=== PATIENT | male | born 1955 | race Hispanic/Latino ===

== ENCOUNTER 2019-10-08 13:41 | Inpatient (IN) | payer MEDICARE, OTHER ==
[~2019-10-08] VITALS: Ht 160 cm; Wt 61.4 kg
[~2019-10-08 13:41] MED LIST: GLUCOPHAGE1000 MG PO; thyroid med
--- OUTSIDE RECORDS SUMMARY | 2019-10-08 13:44 | XMS REPORT | CCD ---
Author Author Auto Luis, GABRIEL Walsh [facility] Address Unknown Phone Unavailable Care Team Providers Care Gold Charmer Name Role Phone Joey Liu CP Allergies, Adverse Reactions, Alerts Substance Reaction Status NKDA Active Problem List Condition Effective Dates Status DM - Diabetes mellitus Active HTN - Hypertension Active Medications Medication Instructions Start Date End Date Status Zofran ODT 4 mg oral 4 mg ODT, PO, Q4H, PRN Nausea and 2012 Ordered tablet, Vomiting, 20 tab, Substitut ion disintegrating Allowed PRN Nausea and Vomiting [place] 5/325 oral 1 - 2 TABS, PO, Q6H, PRN, 20 tab, 01/10/2013 Ordered tablet as needed for pain, Substit ution Allowed, Maintenance, TAB Dilaudid 1 mg, Route: IV, ONCE, Dosing 01/10/2013 3 Completed Weight 72.727, kg, Priority: STAT, Start date: 01/10/13 17:28:00, Stop date: 01/10/13 17:28:00 Zofran 4 mg, Route: IVP, Drug form: INJ, 01/10/201301/10 Completed ONCE, Dosing Weight 72.727, kg, Priority: STAT, Start date: 01/10/13 15:41:00, Stop date: 01/10/13 15:41:00 morphine Sulfate 4 mg, Route: IVP, ONCE, Dosing 01/10/2013 Completed Weight 72.727, kg, Priority: STAT, Start date: 01/10/13 15:40:00, Stop date: 01/10/13 15:40:00 Zofran 4 mg, Route: IVP, Drug form: INJ, 01/10/201301/10 Completed ONCE, Dosing Weight 72.727, kg, Priority: STAT, Start date: 01/10/13 15:40:00, Stop date: 01/10/13 15:40:00 Sodium Chloride 0.9% 500 mL, Rate: 500 ml/hr, Infuse 01/10/2013 01/10/2013 Completed (Bolus) IV 500 mL over: 1 hr, Route: IV, Dosi ng Weight 72.727 kg, Total Volume: 500, Bolus Dose, Priority: STAT, Start date: 01/10/13 15:40:00, Duration: 1 doses or times, Stop date: 01/10/13 16:39:00 Vital Signs Most recent to oldest [Reference Range]: 1 2 Height 172.72 cm (01/10/2013 13:58:00) Temperature Oral [96.4-99.1 DegF] 99.0 DegF (01/10/2013 18:20:00) 97.8 DegF (01/10/2013 13:58:00) Systolic Blood Pressure [90-140 mmHg] 141 mmHg *HI* (01/10/2013 18:20:00) 164 mmHg *HI* (01/10/2013 13:58:00) Diastolic Blood Pressure [60-90 mmHg] 69 mmHg (01/10/2013 18:20:00) 80 mmHg (01/10/2013 13:58:00) Respiratory Rate [14-20 BRMIN] 18 BRMIN (01/10/2013 18:20:00) 18 BRMIN (01/10/2013 13:58:00) Peripheral Pulse Rate [60-100 bpm] 91 bpm (01/10/2013 18:20:00) 82 bpm (01/10/2013 13:58:00) Weight 72.727 kg (01/10/2013 13:58:00) Results CHEMISTRY Most recent to oldest [Reference Range]: 1 Sodium Lvl [135-145 mEq/L] 139 mEq/L (01/10/2013 16:43:00) Potassium Lvl [3.5-5.1 mEq/L] 3.9 mEq/L (01/10/2013 16:43:00) Chloride Lvl [95-109 mEq/L] 100 mEq/L (01/10/2013 16:43:00) CO2 [24-32 mEq/L] 30 mEq/L (01/10/2013 16:43:00) AGAP [10.0-20.0 mEq/L] 12.9 mEq/L (01/10/2013 16:43:00) Creatinine Lvl [0.5-1.4 mg/dL] 0.7 mg/dL (01/10/2013 16:43:00) eGFR 106 mL/min/1.73m2 1 *NA* (01/10/2013 16:43:00) BUN [7-22 mg/dL] 10 mg/dL (01/10/2013 16:43:00) B/C Ratio [6-25] 14 (01/10/2013 16:43:00) Glucose Lvl [70-99 mg/dL] 200 mg/dL 2 *HI* (01/10/2013 16:43:00) Total Protein [6.4-8.4 g/dL] 7.9 g/dL (01/10/2013 16:43:00) Albumin Lvl [3.5-5.0 g/dL] 3.8 g/dL (01/10/2013 16:43:00) Globulin [2.0-4.0 g/dL] 4.1 g/dL *HI* (01/10/2013 16:43:00) A/G Ratio [0.7-1.6] 0.9 (01/10/2013 16:43:00) Calcium Lvl [8.5-10.5 mg/dL] 9.2 mg/dL (01/10/2013 16:43:00) ALT [0-65 unit/L] 73 unit/L *HI* (01/10/2013 16:43:00) AST [0-37 unit/L] 45 unit/L *HI* (01/10/2013 16:43:00) Alk Phos [39-136 unit/L] 133 unit/L (01/10/2013 16:43:00) Bili Total [0.2-1.3 mg/dL] 0.8 mg/dL (01/10/2013 16:43:00) Lipase Lvl [73-393 unit/L] 107 unit/L (01/10/2013 16:43:00) Troponin-I [0.00-0.40 ng/mL] <0.02 ng/mL (01/10/2013 16:43:00) 1Result Comment: The eGFR is calculated using the CKD-EPI formula. In most young, healthy individuals the eGFR will be >90 mL/min/1.73m2. The eGFR declines with age. An eGFR of 60-89 may be normal in some populations, particularly the elderly, for whom the CKD-EPI formula has not been extensively validated. Use of the eGFR is not recommended in the following populations: Individuals with unstable creatinine concentrations, including patients and those with serious co-morbid conditions. Patients with extremes in muscle mass or diet. The data above are obtained from the National Kidney Disease Education Program ( NKDEP) which additionally recommends that when the eGFR is used in patients with extremes of body mass index for purposes of drug dosing, the eGFR should be mul tiplied by the estimated BMI. 2Interpretive Data: Adult reference range values reflect the clinical guidelines of the [place] [employer]. HEMATOLOGY Most recent to oldest [Reference Range]: 1 WBC [3.7-10.4 K/CMM] 9.4 K/CMM (01/10/2013:43:00) RBC [4.70-6.10 M/CMM] 5.05 M/CMM (01/10/2013 16:43:00) Hgb [14.0-18.0 g/dL] 15.6 g/dL (01/10/2013:43:00) Hct [42.0-54.0 %] 46.7 % (01/10/2013 16:43:00) MCV [80.0-94.0 fL] 92.4 fL (01/10/2013:43:00) MCH [27.0-31.0 pg] 30.9 pg (01/10/2013 16:43:00) MCHC [32.0-36.0 g/dL] 33.5 g/dL (01/10/2013 16:43:00) RDW [11.5-14.5 %] 13.4 % (01/10/2013 16:43:00) Platelet [133-450 K/CMM] 174 K/CMM (01/10/2013 16:43:00) MPV [7.4-10.4 fL] 7.9 fL (01/10/2013 16:43:00) Segs [45.0-75.0 %] 75.5 % *HI* (01/10/2013 16:43:00) Lymphocytes [20.0-40.0 %] 12.2 % *LOW* (01/10/2013 16:43:00) Monocytes [2.0-12.0 %] 10.5 % (01/10/2013 16:43:00) Eosinophils [0.0-4.0 %] 1.3 % (01/10/2013 16:43:00) Basophils [0.0-1.0 %] 0.5 % (01/10/2013 16:43:00) Segs-Bands # [1.5-8.1 K/CMM] 7.1 K/CMM (01/10/2013 16:43:00) Lymphocytes # [1.0-5.5 K/CMM] 1.1 K/CMM (01/10/2013 16:43:00) Monocytes # [0.0-0.8 K/CMM] 1.0 K/CMM *HI* (01/10/2013 16:43:00) Eosinophils # [0.0-0.5 K/CMM] 0.1 K/CMM (01/10/2013 16:43:00) Basophils # [0.0-0.2 K/CMM] 0.1 K/CMM (01/10/2013 16:43:00)
--- OUTSIDE RECORDS SUMMARY | 2019-10-08 13:44 | XMS REPORT | Summary of Care ---
Author Author [facility] Organization [facility] toney Address Unknown Phone Unavailable Encounter HQ Shira_daniel(FIN) [id number] Date(s): 09/25/19 - 09/25/19 [facility] [address] [place] [phone] Discharge Disposition: Home or Self Care Attending Physician: Zachary Wilson MD Referring Physician: Zachary Wilson MD Vital Signs No data available for this section Problem List Condition Effective Dates Status Health Status Informan t DM - Diabetes Active mellitus(Confirmed) HTN - Resolved Hypertension(Confirm ed)1 Hyperthyroidism(Conf Active irmed) 1PT denies high blood pressure Allergies, Adverse Reactions, Alerts No Known Medication Allergies Medications No data available for this section Results No data available for this section Immunizations Given and Recorded Vaccine Date Status Refusal Reason pneumococcal 23-valent vaccine 04/09/13 Given influenza virus vaccine, inactivated 04/09/13 G iven Procedures Procedure Date Related Diagnosis Body Site Status Cholecystectomy Completed Social History Social History Type Response Assessment and Plan No data available for this section
--- OUTSIDE RECORDS SUMMARY | 2019-10-08 13:44 | XMS REPORT | CCD ---
Author Author Auto Generated, GABRIEL Organization [facility] Address Unknown Phone Unavailable Care Team Providers Care Electroformer Name Role Phone Jose Currie CP Allergies, Adverse Reactions, Alerts Substance Reaction Status NKDA Active Problem List Condition Effective Dates Status DM - Diabetes mellitus Active HTN - Hypertension1 Resolved Hyperthyroidism Active 1PT denies high blood pressure Medications Medication Instructions Start Date End Date Status levothyroxine 100 100 microgram, 1 tab, PO, Daily, 04/08/2013 Ordered mcg (0.1 mg) oral Substitution Allowed tablet metFORmin 1000 mg 1,000 mg, 1 tab, PO, BID, 04/08/2013 O rdered oral tablet Substitution Allowed NO Aspirin / NSAIDS NO Aspirin / NSAIDS / Blood 04/10/2013 Discontinued / Blood thinners thinners, 1, Drug form: MIS C, Route: MISC, Continuous, 04/10/13 15:30:00, Duration: 30 day, Stop date: 05/10/13 15:29:00 Saline Flush 0.9% 5 mL, Route: IVP, Drug Form: INJ, 04/08/2013 04/08/2013 Discontinued Dosing Weight 74.545, kg, PRN, PRN Line Flush, Start date: 04/08/13 13:22:00, Duration: 24 hr, Stop date: 04/09/13 13:21:00Same as: BD Posiflush Sterile morphine Sulfate 4 mg, 2 mL, Route: IVP, Drug form: 04/08/2013 04/11/2013 Discontinued INJ, Q3H, Dosing Weight 74.545, kg, PRN Pain Score 7-10, Start date: 04/08/13 20:34:00, Duration: 30 day, Stop date: 05/08/13 20:33:00(Same as:MORPhine Sulfate) ondansetron 4 mg, 2 mL, Route: IVP, Drug form: 04/08/201303/24 Discontinued INJ, Q8H, Dosing Weight 74.545, kg, PRN Nausea & Vomiting, Start date: 04/08/13 20:34:00, Duration: 30 day, Stop date: 05/08/13 20:33:00(Same as: Zofran) Hamilton 5/325 oral 1 tab, Route: PO, Drug Form: TAB, 04/08/2013 04/11/2013 Discontinued tablet Dosing Weight 74.545, kg, Q 6H, PRN Pain, Start date: 04/08/13 18:43:00, Duration: 30 day, Stop date: 05/08/13 18:42:00(Same as: Hamilton 325/5) Do not exceed 4gm/day of acetaminophen. Zofran 4 mg, 2 mL, Route: IVP, Drug form: 04/08/201303/24 Discontinued INJ, Q8H, Dosing Weight 74.545, kg, PRN as needed for nausea/vomiting, Priority: STAT, Start date: 04/08/13 18:43:00, Duration: 30 day, Stop date: 05/08/13 18:42:00(Same as: Zofran) NS 1,000 mL 1,000 mL, Rate: 100 ml/hr, Infuse 04/08/201304/11 Discontinued over: 10 hr, Route: IV, Dosing Weight 74.545 kg, Total Volume: 1,000, Start date: 04/08/13 18:42:00, Duration: 30 day, Stop date: 05/08/13 18:41:00 pneumococcal 0.5 ml, Route: IM, Drug Form: INJ, 04/09/2013 Completed 23-valent vaccine Start date: 04/09/13 9:00:0 0, Stop date: 04/09/13 9:00:00 influenza virus 0.5 mL, Route: IM, Drug Form: SUSP, 04/09/2013 04/09/2013 Completed vaccine, inactivated Start date: 04/09/13 9:00:0 0, Stop date: 04/09/13 9:00:00 pneumococcal 0.5 ml, Route: IM, Drug Form: INJ, 04/09/2013 Completed 23-valent vaccine Daily, Start date: 04/09/13 9:00:00, Duration: 1 doses or times, Stop date: 04/09/13 9:00:00(Same as: Pneumovax 23) Refrigerate influenza virus 0.5 mL, Route: IM, Drug Form: SUSP, 04/09/2013 04/09/2013 Completed vaccine, inactivated Daily, Start date: 04/09/13 9:00:00, Duration: 1 doses or times, Stop date: 04/09/13 9:00:00(Same as: Fluzone) Hamilton 5/325 oral 1 tab, PO, Q4-6H, PRN, 30 tab, as 04/11/2013 Ordered tablet needed for pain, Substituti on Allowed, Maintenance clonidine 0.1 mg 0.1 mg, 1 tab, Route: PO, Drug 04/08/2013 Discontinued oral tablet form: TAB, Q8H, Dosing Weig ht 74.545, kg, PRN Elevated BP, Start date: 04/08/13 21:22:00, Duration: 30 day, Stop date: 05/08/13 21:21:00(Same As: Catapres) Sodium Chloride 0.9% 1,000 mL, Rate: 1,000 ml/hr, Infuse 03/2304/08/2013 Completed (Bolus) IV 1000 mL over: 1 hr, Route: IV, Dosi ng Weight 74.545 kg, Total Volume: 1,000, Priority: STAT, Start date: 04/08/13 15:05:00, Duration: 1 doses or times, Stop date: 04/08/13 16:04:00, Bolus Dose Bolus Dose Zofran 4 mg, Route: IVP, Drug form: INJ, 04/08/201304/08 Completed ONCE, Dosing Weight 74.545, kg, Priority: STAT, Start date: 04/08/13 15:05:00, Stop date: 04/08/13 15:05:00 morphine Sulfate 4 mg, Route: IVP, Drug form: INJ, 04/08/2013 04/08/2013 Completed ONCE, Dosing Weight 74.545, kg, Priority: STAT, Start date: 04/08/13 15:05:00, Stop date: 04/08/13 15:05:00 levothyroxine 100 microgram, 1 tab, Route: PO, 04/09/201303/24 Discontinued Drug form: TAB, Q630AM, Dosing Weight 74.545, kg, Start date: 04/09/13 6:30:00, Duration: 30 day, Stop date: 05/08/13 6:30:00Take 1 hour before or 2 hours after meal; Enteral feeds may interefere with the absorption of this medication. (Same as:Levothroid, Synthroid) glucagon 1 mg, Route: IM, Drug form: 04/08/2013 04/11/2013 Discontinued PDR/INJ, PRN, Dosing Weight 74.545, kg, PRN Blood Glucose Results, Start date: 04/08/13 18:53:00, Duration: 30 day, Stop date: 05/08/13 18:52:00 insulin aspart 2 unit, 0.02 mL, Route: SUB-Q, Drug 04/08/2013 04/11/2013 Discontinued form: SOLN, TID-Before Meals, Dosing Weight 74.545, kg, PRN Blood Glucose Results, Start date: 04/08/13 18:53:00, Duration: 30 day, Stop date: 05/08/13 18:52:00Roll in palms of hands gently; Do not shake vigorously. (Same as: NovoLog)"single patient use only" Stable for 28 days at room temperature.Expires in days from Date insulin aspart 2 unit, 0.02 mL, Route: SUB-Q, Drug 04/08/2013 04/11/2013 Discontinued form: SOLN, Bedtime, Dosing Weight 74.545, kg, PRN Blood Glucose Results, Start date: 04/08/13 18:53:00, Duration: 30 day, Stop date: 05/08/13 18:52:00Roll in palms of hands gently; Do not shake vigorously. (Same as: NovoLog)"single patient use only" Stable for 28 days at room temperature.Expires in days from Date insulin aspart 1 unit, 0.01 mL, Route: SUB-Q, Drug 04/08/2013 04/11/2013 Discontinued form: SOLN, Bedtime, Dosing Weight 74.545, kg, PRN Blood Glucose Results, Start date: 04/08/13 18:53:00, Duration: 30 day, Stop date: 05/08/13 18:52:00Roll in palms of hands gently; Do not shake vigorously. (Same as: NovoLog)"single patient use only" Stable for 28 days at room temperature.Expires in days from Date insulin aspart 3 unit, 0.03 mL, Route: SUB-Q, Drug 04/08/2013 04/11/2013 Discontinued form: SOLN, Bedtime, Dosing Weight 74.545, kg, PRN Blood Glucose Results, Start date: 04/08/13 18:53:00, Duration: 30 day, Stop date: 05/08/13 18:52:00Roll in palms of hands gently; Do not shake vigorously. (Same as: NovoLog)"single patient use only" Stable for 28 days at room temperature.Expires in days from Date insulin aspart 4 unit, 0.04 mL, Route: SUB-Q, Drug 04/08/2013 04/11/2013 Discontinued form: SOLN, Bedtime, Dosing Weight 74.545, kg, PRN Blood Glucose Results, Start date: 04/08/13 18:53:00, Duration: 30 day, Stop date: 05/08/13 18:52:00Roll in palms of hands gently; Do not shake vigorously. (Same as: NovoLog)"single patient use only" Stable for 28 days at room temperature.Expires in days from Date Dextrose 50% Syringe 25 gm, 50 mL, Route: IVP, Drug 04/08/2013 04/11/2013 Discontinued Form: INJ, Dosing Weight 74.545, kg, PRN, PRN Blood Glucose Results, Start date: 04/08/13 18:53:00, Duration: 30 day, Stop date: 05/08/13 18:52:00 Dextrose 50% Syringe 12.5 gm, 25 mL, Route: IVP, Drug 04/08/2013 04/11/2013 Discontinued Form: INJ, Dosing Weight 74.545, kg, PRN, PRN Blood Glucose Results, Start date: 04/08/13 18:53:00, Duration: 30 day, Stop date: 05/08/13 18:52:00 insulin aspart 8 unit, 0.08 mL, Route: SUB-Q, Drug 04/08/2013 04/11/2013 Discontinued form: SOLN, TID-Before Meals, Dosing Weight 74.545, kg, PRN Blood Glucose Results, Start date: 04/08/13 18:53:00, Duration: 30 day, Stop date: 05/08/13 18:52:00Roll in palms of hands gently; Do not shake vigorously. (Same as: NovoLog)"single patient use only" Stable for 28 days at room temperature.Expires in days from Date insulin aspart 6 unit, 0.06 mL, Route: SUB-Q, Drug 04/08/2013 04/11/2013 Discontinued form: SOLN, TID-Before Meals, Dosing Weight 74.545, kg, PRN Blood Glucose Results, Start date: 04/08/13 18:53:00, Duration: 30 day, Stop date: 05/08/13 18:52:00Roll in palms of hands gently; Do not shake vigorously. (Same as: NovoLog)"single patient use only" Stable for 28 days at room temperature.Expires in days from Date insulin aspart 10 unit, 0.1 mL, Route: SUB-Q, Drug 04/08/2013 04/11/2013 Discontinued form: SOLN, TID-Before Meals, Dosing Weight 74.545, kg, PRN Blood Glucose Results, Start date: 04/08/13 18:53:00, Duration: 30 day, Stop date: 05/08/13 18:52:00Roll in palms of hands gently; Do not shake vigorously. (Same as: NovoLog)"single patient use only" Stable for 28 days at room temperature.Expires in days from Date insulin aspart 4 unit, 0.04 mL, Route: SUB-Q, Drug 04/08/2013 04/11/2013 Discontinued form: SOLN, TID-Before Meals, Dosing Weight 74.545, kg, PRN Blood Glucose Results, Start date: 04/08/13 18:53:00, Duration: 30 day, Stop date: 05/08/13 18:52:00Roll in palms of hands gently; Do not shake vigorously. (Same as: NovoLog)"single patient use only" Stable for 28 days at room temperature.Expires in days from Date Immunizations Vaccine Date Status influenza virus vaccine, inactivated 04/09/2013 A uth (Verified) pneumococcal 23-valent vaccine 04/09/2013 Auth (V erified) Vital Signs Most recent to oldest [Reference Range]: 1 2 3 Height 160.02 cm (04/09/2013 06:34:00) 160.02 cm (04/08/2013 11:20:00) Temperature Oral [96.4-99.1 DegF] 98.0 DegF (04/11/2013 12:24:00) 98.5 DegF (04/11/2013 08:04:00) 98.0 DegF (04/11/2013 04:00:00) Systolic Blood Pressure [90-140 mmHg] 124 mmHg (04/11/2013 12:24:00) 148 mmHg *HI* (04/11/2013 08:04:00) 160 mmHg *HI* (04/11/2013 04:00:00) Diastolic Blood Pressure [60-90 mmHg] 74 mmHg (04/11/2013 12:24:00) 68 mmHg (04/11/2013 08:04:00) 78 mmHg (04/11/2013 04:00:00) Respiratory Rate [14-20 BRMIN] 18 BRMIN (04/11/2013 08:52:00) 14 BRMIN (04/11/2013 08:04:00) 16 BRMIN (04/11/2013 04:00:00) Peripheral Pulse Rate [60-100 bpm] 69 bpm (04/11/2013 12:24:00) 60 bpm (04/11/2013 08:04:00) 63 bpm (04/11/2013 04:00:00) Weight 74.545 kg (04/09/2013 06:34:00) 74.545 kg (04/08/2013 11:20:00) Results BEDSIDE GLUCOSE TESTING Most recent to oldest [Reference Range]: 1 2 3 Glucose POC [70-99 mg/dL] 188 mg/dL 1 *HI* (04/11/2013 06:08:00) 210 mg/dL 2 *HI* (04/10/2013 20:57:00) 153 mg/dL 3 *HI* (04/10/2013 16:09:00) Gluc POC Comment 1 Notified RN/MD *NA* (04/11/2013 06:08:00) Notified RN/MD *NA* (04/10/2013 20:57:00) Notified RN/MD *NA* (04/10/2013 16:09:00) 1Interpretive Data: Upper Reportable Limit: 200 mg/dL. 2Interpretive Data: Upper Reportable Limit: 200 mg/dL. 3Interpretive Data: Upper Reportable Limit: 200 mg/dL. URINALYSIS Most recent to oldest [Reference Range]: 1 2 3 UA Turbidity [Clear] Clear (04/08/2013 14:19:00) UA Color Nerissa *NA* (04/08/2013 14:19:00) UA pH [5.0-8.0] 6.0 (04/08/2013 14:19:00) UA Spec Grav [<=1.030] 1.041 *HI* (04/08/2013 14:19:00) UA Glucose [Negative mg/dL] 500 mg/dL *ABN* (04/08/2013 14:19:00) UA Blood [Negative] Negative (04/08/2013 14:19:00) UA Ketones [Negative mg/dL] Trace mg/dL *ABN* (04/08/2013 14:19:00) UA Protein [Negative mg/dL] 30 mg/dL *ABN* (04/08/2013 14:19:00) UA Urobilinogen [0.1-1.0 mg/dL] 4.0 mg/dL *HI* (04/08/2013:19:00) UA Bili [Negative] Moderate *ABN* (04/08/2013:19:00) UA Leuk Est [Negative] Negative (04/08/2013:19:00) UA Nitrite [Negative] Negative (04/08/2013:19:00) UA WBC [0-5 /HPF] 1 /HPF (04/08/2013:19:00) UA RBC [0-2 /HPF] 1 /HPF (04/08/2013:19:00) UA Sq Epi None Seen *NA* (04/08/2013::) CHEMISTRY Most recent to oldest [Reference Range]: 1 2 3 Sodium Lvl [135-145 mEq/L] 139 mEq/L (04/09/2013 04:20:00) 138 mEq/L (04/08/2013:19:00) Potassium Lvl [3.5-5.1 mEq/L] 3.6 mEq/L (04/09/2013 04:20:00) 3.6 mEq/L (04/08/2013::) Chloride Lvl [95-109 mEq/L] 101 mEq/L (04/09/2013 04:20:00) 101 mEq/L (04/08/2013:19:00) CO2 [24-32 mEq/L] 30 mEq/L (04/09/2013 04:20:00) 29 mEq/L (04/08/2013:19:00) AGAP [10.0-20.0 mEq/L] 11.6 mEq/L (04/09/2013 04:20:00) 11.6 mEq/L (04/08/2013:19:00) Creatinine Lvl [0.5-1.4 mg/dL] 0.6 mg/dL (04/09/2013 04:20:00) 0.7 mg/dL (04/08/2013:19:00) eGFR 112 mL/min/1.73m2 4 *NA* (04/09/2013 04:20:00) 106 mL/min/1.73m2 5 *NA* (04/08/2013 14:19:00) BUN [7-22 mg/dL] 7 mg/dL (04/09/2013 04:20:00) 11 mg/dL (04/08/2013 14:19:00) B/C Ratio [6-25] 12 (04/09/2013 04:20:00) 16 (04/08/2013 14:19:00) Glucose Lvl [70-99 mg/dL] 193 mg/dL 6 *HI* (04/09/2013 04:20:00) 252 mg/dL 7 *HI* (04/08/2013 14:19:00) Total Protein [6.4-8.4 g/dL] 7.3 g/dL (04/11/2013 03:53:00) 7.5 g/dL (04/09/2013 04:20:00) 8.1 g/dL (04/08/2013 14:19:00) Albumin Lvl [3.5-5.0 g/dL] 3.3 g/dL *LOW* (04/11/2013 03:53:00) 3.4 g/dL *LOW* (04/09/2013 04:20:00) 3.8 g/dL (04/08/2013 14:19:00) Globulin [2.0-4.0 g/dL] 4.0 g/dL (04/11/2013 03:53:00) 4.1 g/dL *HI* (04/09/2013 04:20:00) 4.3 g/dL *HI* (04/08/2013 14:19:00) A/G Ratio [0.7-1.6] 0.8 (04/11/2013 03:53:00) 0.8 (04/09/2013 04:20:00) 0.9 (04/08/2013 14:19:00) Calcium Lvl [8.5-10.5 mg/dL] 9.1 mg/dL (04/09/2013 04:20:00) 9.8 mg/dL (04/08/2013 14:19:00) Magnesium Lvl [1.8-2.4 mg/dL] 1.9 mg/dL (04/08/2013 14:19:00) ALT [0-65 unit/L] 250 unit/L *HI* (04/11/2013 03:53:00) 452 unit/L *HI* (04/09/2013 04:20:00) 532 unit/L *HI* (04/08/2013 14:19:00) AST [0-37 unit/L] 58 unit/L *HI* (04/11/2013 03:53:00) 149 unit/L *HI* (04/09/2013 04:20:00) 185 unit/L *HI* (04/08/2013 14:19:00) Alk Phos [39-136 unit/L] 252 unit/L *HI* (04/11/2013 03:53:00) 266 unit/L *HI* (04/09/2013 04:20:00) 288 unit/L *HI* (04/08/2013 14:19:00) Bili Total [0.2-1.3 mg/dL] 2.2 mg/dL *HI* (04/11/2013 03:53:00) 4.3 mg/dL *HI* (04/09/2013 04:20:00) 4.4 mg/dL *HI* (04/08/2013 14:19:00) Bili Direct [0.0-0.3 mg/dL] 1.2 mg/dL *HI* (04/11/2013 03:53:00) Bili Indirect [0.0-1.0 mg/dL] 1.0 mg/dL (04/11/2013 03:53:00) Amylase Lvl [25-115 unit/L] 38 unit/L (04/08/2013 14:19:00) Lipase Lvl [73-393 unit/L] 211 unit/L (04/08/2013 14:19:00) 4Result Comment: The eGFR is calculated using the [...] be mul tiplied by the estimated BMI. 5Result Comment: The eGFR is calculated using the [...] be mul tiplied by the estimated BMI. 6Interpretive Data: Adult reference range values reflect the clinical guidelines of the [place] [employer]. 7Interpretive Data: Adult reference range values reflect the clinical guidelines of the [place] [employer]. HEMATOLOGY Most recent to oldest [Reference Range]: 1 2 3 WBC [3.7-10.4 K/CMM] 6.0 K/CMM (04/11/2013 03:53:00) 5.9 K/CMM (04/09/2013 04:20:00) 6.0 K/CMM (04/08/2013 14:19:00) RBC [4.70-6.10 M/CMM] 4.92 M/CMM (04/11/2013 03:53:00) 5.19 M/CMM (04/09/2013 04:20:00) 5.38 M/CMM (04/08/2013 14:19:00) Hgb [14.0-18.0 g/dL] 14.8 g/dL (04/11/2013 03:53:00) 15.7 g/dL (04/09/2013 04:20:00) 16.2 g/dL (04/08/2013 14:19:00) Hct [42.0-54.0 %] 43.2 % (04/11/2013 03:53:00) 46.1 % (04/09/2013 04:20:00) 47.4 % (04/08/2013 14:19:00) MCV [80.0-94.0 fL] 87.8 fL (04/11/2013 03:53:00) 88.9 fL (04/09/2013 04:20:00) 88.1 fL (04/08/2013 14:19:00) MCH [27.0-31.0 pg] 30.2 pg (04/11/2013 03:53:00) 30.3 pg (04/09/2013 04:20:00) 30.0 pg (04/08/2013 14:19:00) MCHC [32.0-36.0 g/dL] 34.4 g/dL (04/11/2013 03:53:00) 34.1 g/dL (04/09/2013 04:20:00) 34.1 g/dL (04/08/2013 14:19:00) RDW [11.5-14.5 %] 14.2 % (04/11/2013 03:53:00) 14.3 % (04/09/2013 04:20:00) 14.0 % (04/08/2013 14:19:00) Platelet [133-450 K/CMM] 192 K/CMM (04/11/2013 03:53:00) 224 K/CMM (04/09/2013 04:20:00) 224 K/CMM (04/08/2013 14:19:00) MPV [7.4-10.4 fL] 8.3 fL (04/11/2013 03:53:00) 7.9 fL (04/09/2013 04:20:00) 8.1 fL (04/08/2013 14:19:00) Segs [45.0-75.0 %] 58.6 % (04/11/2013 03:53:00) 62.0 % (04/09/2013 04:20:00) 70.1 % (04/08/2013 14:19:00) Lymphocytes [20.0-40.0 %] 28.3 % (04/11/2013 03:53:00) 24.7 % (04/09/2013 04:20:00) 18.7 % *LOW* (04/08/2013 14:19:00) Monocytes [2.0-12.0 %] 8.9 % (04/11/2013 03:53:00) 8.7 % (04/09/2013 04:20:00) 7.6 % (04/08/2013 14:19:00) Eosinophils [0.0-4.0 %] 3.5 % (04/11/2013 03:53:00) 4.1 % *HI* (04/09/2013 04:20:00) 3.2 % (04/08/2013 14:19:00) Basophils [0.0-1.0 %] 0.7 % (04/11/2013 03:53:00) 0.5 % (04/09/2013 04:20:00) 0.4 % (04/08/2013 14:19:00) Segs-Bands # [1.5-8.1 K/CMM] 3.5 K/CMM (04/11/2013 03:53:00) 3.7 K/CMM (04/09/2013 04:20:00) 4.2 K/CMM (04/08/2013 14:19:00) Lymphocytes # [1.0-5.5 K/CMM] 1.7 K/CMM (04/11/2013 03:53:00) 1.5 K/CMM (04/09/2013 04:20:00) 1.1 K/CMM (04/08/2013 14:19:00) Monocytes # [0.0-0.8 K/CMM] 0.5 K/CMM (04/11/2013 03:53:00) 0.5 K/CMM (04/09/2013 04:20:00) 0.5 K/CMM (04/08/2013 14:19:00) Eosinophils # [0.0-0.5 K/CMM] 0.2 K/CMM (04/11/2013 03:53:00) 0.2 K/CMM (04/09/2013 04:20:00) 0.2 K/CMM (04/08/2013 14:19:00) Basophils # [0.0-0.2 K/CMM] 0.0 K/CMM (04/11/2013 03:53:00) 0.0 K/CMM (04/09/2013 04:20:00) 0.0 K/CMM (04/08/2013 14:19:00) PT [12.0-14.7 seconds] 13.3 seconds (04/09/2013 04:20:00) 13.1 seconds (04/08/2013 14:19:00) INR [0.85-1.17] 1.02 8 (04/09/2013 04:20:00) 1.00 9 (04/08/2013 14:19:00) PTT [22.9-35.8 seconds] 33.2 seconds 10 (04/09/2013 04:20:00) 33.1 seconds 11 (04/08/2013 14:19:00) 8Interpretive Data: RECOMMENDED RANGES FOR PROTIME INR: 2.0-3.0 for most medical and surgical thromboembolic states. 2.5-3.5 for artificial heart valves and recurrent embolism. INR SHOULD BE USED ONLY FOR PATIENTS ON STABLE ANTICOAGULANT THERAPY. 9Interpretive Data: RECOMMENDED RANGES FOR PROTIME INR: 2.0-3.0 for most medical and surgical thromboembolic states. 2.5-3.5 for artificial heart valves and recurrent embolism. INR SHOULD BE USED ONLY FOR PATIENTS ON STABLE ANTICOAGULANT THERAPY. 10Interpretive Data: Heparin Therapeutic Range: 57 - 92 Seconds 11Interpretive Data: Heparin Therapeutic Range: 57 - 92 Seconds IMMUNOLOGY Most recent to oldest [Reference Range]: 1 2 3 CDC-HIV 1/2 Ab [Negative] Negative *NA* (04/08/2013 14:19:00) Hep Bs Ag [Negative] Negative *NA* (04/08/2013 20:35:00) Hep B Core IgM [Negative] Negative *NA* (04/08/2013 20:35:00) Hep A IgM [Negative] Negative *NA* (04/08/2013 20:35:00) Hep C Ab [Negative] Negative *NA* (04/08/2013 20:35:00) Microbiology Reports PROCEDURE:Culture: Urine STATUS: Auth (Verified) BODY SITE: COLLECTED DATE/TIME: 04/08/2013 14:19:00 SOURCE: Urine, Clean Catch FREE TEXT SOURCE: FINAL REPORTS Final Report No Growth PRELIMINARY REPORTS Preliminary Report No Growth; Holding Preliminary Report No Growth; Holding Procedures Procedures Date Related Diagnosis Cholecystectomy
--- OUTSIDE RECORDS SUMMARY | 2019-10-08 13:44 | XMS REPORT | Continuity of Care Document ---
Author Author Mehnaz Campos [employer], GABRIEL [facility] [employer] 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 Phone [facility] [employer] Unavailable Un available Problems Problem Status Onset Date Classification Date Reported Comments Source M79.662 - PAIN IN LEFT LOWER LEG Active 09/24/2019 HENRIK Campos ELEVATED LIVER ENZYMES, RIGHT RIB FRACTU Active 04/08/2013 [facility] ABD PAIN Active 04/08/2013 [facility] ABDOMINAL PAIN Active 01/10/2013 [facility] DM - Diabetes mellitus Active Problem 01/12/2013 [facility] HTN - Hypertension Active Problem 01/12/2013 [facility] Diabetes mellitus (disorder) A ctive Problem 11/2019 [facility] Hypertensive disorder, systemic arterial (disorder) Resolved Problem 09/27/2019 PT denies high bloo d pressure [facility] Hyperthyroidism (disorder) Act allison Problem 11/2019 [facility] ABDMNAL PAIN UNSPCF SITE Active [facility] Medications Medication Details Route Status Patient Instructions Ordering Provider Order Date Source [place] 5/325 oral tablet 1 tab, PO, Q4-6H, PRN, 30 tab, as needed for pain, Substitution Allowed, Maintenance Active [place] 04/11/2013 [facility] NO Aspirin / NSAIDS / Blood thinners NO Aspirin / NSAIDS / Blood thinners, 1, Drug form: MISC, Route: MISC, Continuous, 04/10/13 15:30:00, Duration: 30 day, Stop date: 05/10/13 15:29:00 No Longer Active Verónica 04/10/2013 [facility] pneumococcal 23-valent vaccine 0.5 ml, Route: IM, Drug Form: INJ, Start date: 04/09/13 9:00:00, Stop date: 04/09/13 9:00:00 Inactive SYSTEM 04/09/2013 [facility] influenza virus vaccine, inactivated 0.5 mL, Route: IM, Drug Form: SUSP, Start date: 04/09/13 9:00:00, Stop date: 04/09/13 9:00:00 Inactive SYSTEM 04/09/2013 [facility] levothyroxine 100 microgram, 1 tab, Route: PO, Drug form: TAB, Q630AM, Dosing Weight 74.545, kg, Start date: 04/09/13 6:30:00, Duration: 30 day, Stop date: 05/08/13 6:30:00Take 1 hour before or 2 hours after meal; Enteral feeds may interefere with the absorption of this medication. (Same as:Levothroid, Synthroid) No Longer Active [facility] 04/09/2013 [facility] clonidine 0.1 mg oral tablet 0 .1 mg, 1 tab, Route: PO, Drug form: TAB, Q8H, Dosing Weight 74.545, kg, PRN Elevated BP, Start date: 04/08/13 21:22:00, Duration: 30 day, Stop date: 05/08/13 21:21:00(Same As: Catapres) No Longer Active [facility] 04/09/2013 [facility] morphine Sulfate 4 mg, 2 mL, R oute: IVP, Drug form: INJ, Q3H, Dosing Weight 74.545, kg, PRN Pain Score 7-10, Start date: 04/08/13 20:34:00, Duration: 30 day, Stop date: 05/08/13 20:33:00(Same as:MORPhine Sulfate) No Longer Active [facility] 04/09/2013 [facility] ondansetron 4 mg, 2 mL, Route: IVP, Drug form: INJ, Q8H, Dosing Weight 74.545, kg, PRN Nausea & Vomiting, Start date: 04/08/13 20:34:00, Duration: 30 day, Stop date: 05/08/13 20:33:00(Same as: Zofran) No Longer Active [facility] 04/09/2013 [facility] glucagon 1 mg, Route: IM, Drug form: PDR/INJ, PRN, Dosing Weight 74.545, kg, PRN Blood Glucose Results, Start date: 04/08/13 18:53:00, Duration: 30 day, Stop date: 05/08/13 18:52:00 No Longer Active [facility] 04/09/2013 [facility] insulin aspart 2 unit, 0.02 mL , Route: SUB-Q, Drug form: SOLN, TID-Before Meals, Dosing Weight 74.545, kg, PRN Blood Glucose Results, Start date: 04/08/13 18:53:00, Duration: 30 day, Stop date: 05/08/13 18:52:00Rol l in palms of hands gently; Do not shake vigorously. (Same as: NovoLog) "single patient use only" Stable for 28 days at room temperature. Expires in days from Date No Longer Active [place] 04/09/2013 [facility] Dextrose 50% Syringe 25 gm, 50 mL, Route: IVP, Drug Form: INJ, Dosing Weight 74.545, kg, PRN, PRN Blood Glucose Results, Start date: 04/08/13 18:53:00, Duration: 30 day, Stop date: 05/08/13 18:52:00 No Longer Active [place] 04/09/2013 [facility] levothyroxine 100 mcg (0.1 mg) oral tablet 100 microgram, 1 tab, PO, Daily, Substitution Allowed Active [place] 04/09/2013 [facility] metFORmin 1000 mg oral tablet 1,000 mg, 1 tab, PO, BID, Substitution Allowed Active 04/09/2013 [facility] [place] 5/325 oral tablet 1 tab, Route: PO, Drug Form: TAB, Dosing Weight 74.545, kg, Q6H, PRN Pain, Start date: 04/08/13 18:43:00, Duration: 30 day, Stop date: 05/08/13 18:42:00(Same as: [place] 325/5) Do not exceed 4gm/day of acetaminophen. No Longer Active [place] 04/09/2013 [facility] Zofran 4 mg, 2 mL, Route: IVP, Drug form: INJ, Q8H, Dosing Weight 74.545, kg, PRN as needed for nausea/vomiting, Priority: STAT, Start date: 04/08/13 18:43:00, Duration: 30 day, Stop date: 05/08/13 18:42:00 (Same as: Zofran) No Longer [facility] NS 1,000 mL 1,000 mL, Rate: 10 0 ml/hr, Infuse over: 10 hr, Route: IV, Dosing Weight 74.545 kg, Total Volume: 1,000, Start date: 04/08/13 18:42:00, Duration: 30 day, Stop date: 05/08/13 18:41:00 No Longer Active [facility] 04/09/2013 [facility] Sodium Chloride 0.9% (Bolus) IV 1000 mL 1,000 mL, Rate: 1,000 ml/hr, Infuse over: 1 hr, Route: IV, Dosing Weight 74.545 kg, Total Volume: 1,000, Priority: STAT, Start date: 04/08/13 15:05:00, Duration: 1 doses or times, Stop date: 04/08/13 16:04:00, Bolus DoseBolus Dose Inactive [facility] 04/08/2013 [facility] Zofran 4 mg, Route: IVP, Drug form: INJ, ONCE, Dosing Weight 74.545, kg, Priority: STAT, Start date: 04/08/13 15:05:00, Stop date: 04/08/13 15:05:00 Inactive [facility] 04/08/2013 [facility] morphine Sulfate 4 mg, Route: IVP, Drug form: INJ, ONCE, Dosing Weight 74.545, kg, Priority: STAT, Start date: 04/08/13 15:05:00, Stop date: 04/08/13 15:05:00 Inactive [facility] 04/08/2013 [facility] Saline Flush 0.9% 5 mL, Route: IVP, Drug Form: INJ, Dosing Weight 74.545, kg, PRN, PRN Line Flush, Start date: 04/08/13 13:22:00, Duration: 24 hr, Stop date: 04/09/13 13:21:00Same as: BD Posiflush Sterile Inactive [facility] 04/08/2013 [facility] [place] 5/325 oral tablet 1 - 2 TABS, PO, Q6H, PRN, 20 tab, as needed for pain, Substitution Allowed, Maintenance, TAB PO Active Blake 01/10/2013 [facility] Zofran ODT 4 mg oral tablet, disintegrating 4 mg ODT, PO, Q4H, PRN Nausea and Vomiting, 20 tab, Substitution AllowedPRN Nausea and Vomiting PO Active [place] 01/10 [facility] Dilaudid 1 mg, Route: IV, ONCE , Dosing Weight 72.727, kg, Priority: STAT, Start date: 01/10/13 17:28:00, Stop date: 01/10/13 17:28:00 IV No Longer Active [place] 01/10 [facility] Zofran 4 mg, Route: IVP, Drug form: INJ, ONCE, Dosing Weight 72.727, kg, Priority: STAT, Start date: 01/10/13 15:41:00, Stop date: 01/10/13 15:41:00 IVP No Longer Active [place] 01/10/2013 [facility] morphine Sulfate 4 mg, Route: IVP, ONCE, Dosing Weight 72.727, kg, Priority: STAT, Start date: 01/10/13 15:40:00, Stop date: 01/10/13 15:40:00 IVP No Longer Active [place] 01/10/2013 [facility] Zofran 4 mg, Route: IVP, Drug form: INJ, ONCE, Dosing Weight 72.727, kg, Priority: STAT, Start date: 01/10/13 15:40:00, Stop date: 01/10/13 15:40:00 IVP No Longer Active [place] 01/10/2013 [facility] Sodium Chloride 0.9% (Bolus) IV 500 mL 500 mL, Rate: 500 ml/hr, Infuse over: 1 hr, Route: IV, Dosing Weight 72.727 kg, Total Volume: 500, Bolus Dose, Priority: STAT, Start date: 01/10/13 15:40:00, Duration: 1 doses or times, Stop date: 01/10/13 16:39:00 IV No Longer Active [place] 01/10/2013 [facility] Allergies, Adverse Reactions, Alerts Substance Category Reaction Severity Reaction type Status Date Reported Comments Source No Known Medication Allergies Assertion Drug aller gy HENRIK Campos Immunizations Immunization Date Given Site Status Last Updated Comments Source pneumococcal 23-valent vaccine 04/09/2013 florencio vargas [facility] influenza virus vaccine, inactivated 04/09/2013 florencio George [facility] pneumococcal 23-valent vaccine 04/09/2013 Right deltoid completed Doris HENRIK Campos influenza virus vaccine, inactivated 04/09/2013 Left deltoid completed Doris HENRIK Campos Results Order Name Results Value Reference Range Date Interpretation Comments Source BEDSIDE GLUCOSE TESTING Gluc POC Com ment 1 Notified RN/ 04/11/2013 [facility] BEDSIDE GLUCOSE TESTING Glucose POC 188 70 - 99 04/11/2013 [facility] <sup>1</sup>Interpretive Data: Upper Reportable Limit: 200 mg/dL. [facility] CHEMISTR[facility] Bili Direct 1.2 0.0 - 0.3 04/11/2013 [facility] CHEMISTRY ASPARTATE TRANSAMINASE 58 0 - 37 04/11/2013 [facility] CHEMISTRY Alk Phos 252 39 - 136 04/11/2013 [facility] CHEMISTRY Bili Total 2.2 0.2 - 1.3 04/11/2013 HI [facility] CHEMISTRY Total Protein 7.3 6.4 - 8.4 04/11/2013 Normal [facility] CHEMISTRY Albumin Lvl 3.3 3.5 - 5.0 04/11/2013 LOW [facility] CHEMISTRY ALANINE AMINOTRANSFERASE 2 50 0 - 65 04/11/2013 [facility] CHEMISTRY Bili Indirect 1.0 0.0 - 1.0 04/11/2013 Normal [facility] CHEMISTRY Globulin 4.0 2.0 - 4.0 04/11/2013 Normal [facility] CHEMISTRY A/G Ratio 0.8 0.7 - 1.6 04/11/2013 Normal [facility] HEMATOLOGY MCHC 34.4 32.0 - 36.0 04/11/2013 Normal [facility] HEMATOLOGY RDW 14.2 11.5 - 14.5 04/11/2013 Normal [facility] HEMATOLOGY MPV 8.3 7.4 - 10.4 04/11/2013 Normal [facility] HEMATOLOGY MCH 30.2 27.0 - 31.0 04/11/2013 Normal [facility] HEMATOLOGY Platelet 192 133 - 450 04/11/2013 Normal [facility] HEMATOLOGY Hct 43.2 42.0 - 54.0 04/11/2013 Normal [facility] HEMATOLOGY RBC X 10x6 4.92 4.70 - 6.10 04/11/2013 Normal [facility] HEMATOLOGY Hgb 14.8 14.0 - 18.0 04/11/2013 Normal [facility] HEMATOLOGY WBC X 10x3 6.0 3.7 - 10.4 04/11/2013 Normal [facility] HEMATOLOGY MCV 87.8 80.0 - 94.0 04/11/2013 Normal [facility] HEMATOLOGY Eosinophils 3.5 0.0 - 4.0 04/11/2013 Normal [facility] HEMATOLOGY Basophils # 0.0 0.0 - 0.2 04/11/2013 Normal [facility] HEMATOLOGY Monocytes # 0.5 0.0 - 0.8 04/11/2013 Normal [facility] HEMATOLOGY Eosinophils # 0.2 0.0 - 0.5 04/11/2013 Normal [facility] HEMATOLOGY Lymphocytes # 1.7 1.0 - 5.5 04/11/2013 Normal [facility] HEMATOLOGY Basophils 0.7 0.0 - 1.0 04/11/2013 Normal [facility] HEMATOLOGY Segs-Bands # 3.5 1.5 - 8.1 04/11/2013 Normal [facility] HEMATOLOGY Monocytes 8.9 2.0 - 12.0 04/11/2013 Normal [facility] HEMATOLOGY Segs 58.6 45.0 - 75.0 04/11/2013 Normal [facility] Lymphocytes 28.3 20.0 - 40.0 04/11/2013 Normal [facility] BEDSIDE GLUCOSE TESTING Gluc POC Com ment 1 Notified RN/ 04/11/2013 [facility] BEDSIDE GLUCOSE TESTING Glucose POC 210 70 - 99 04/11/2013 [facility] <sup>2</sup>Interpretive Data: Upper Reportable Limit: 200 mg/dL. [facility] BEDSIDE GLUCOSE TESTING Gluc POC Com ment 1 Notified RN/ 04/10/2013 [facility] BEDSIDE GLUCOSE TESTING Glucose POC 153 70 - 99 04/10/2013 [facility] <sup>3</sup>Interpretive Data: Upper Reportable Limit: 200 mg/dL. [facility] CHEMISTRY A/G Ratio 0.8 0.7 - 1.6 04/09/2013 Normal [facility] CHEMISTRY AGAP 11.6 10.0 - 20.0 04/09/2013 Normal [facility] CHEMISTRY B/C Ratio 12 6 - 25 04/09/2013 Normal [facility] CHEMISTRY Globulin 4.1 2.0 - 4.0 04/09/2013 HI [facility] CHEMISTRY ASPARTATE TRANSAMINASE 149 0 - 37 04/09/2013 [facility] CHEMISTRY eGFR 112 04/09/2013 <sup>4</sup>Result Comment: The eGFR is calculated using the CKD-EPI formula. In most young, healthy individuals the eGFR will be >90 mL/min/1.73m2. The eGFR declines with age. An eGFR of 60-89 may be normal in some populations, particularly the elderly, for whom the CKD-EPI formula has not been extensively validated. Use of the eGFR is not recommended in the following populations:& lt;br/>
Individuals with unstable creatinine concentrations, including patients and those with serious co-morbid conditions.

Patients with extremes in muscle mass or diet.

The data above are obtained from the National Kidney Disease Education Program (NKDEP) which additionally recommends that when the eGFR is used in patients with extremes of body mass index for purposes of drug dosing, the eGFR should be multiplied by the estimated BMI. [facility] CHEMISTRY Chloride Lvl 101 95 - 109 04/09/2013 Normal [facility] CHEMISTRY Creatinine Lvl 0.6 0.5 - 1.4 04/09/2013 Normal [facility] CHEMISTRY Sodium Lvl 139 135 - 145 04/09/2013 Normal [facility] CHEMISTRY Potassium Lvl 3.6 3.5 - 5.1 04/09/2013 Normal [facility] CHEMISTRY CO2 30 24 - 32 04/09/2013 Normal [facility] CHEMISTRY Bili Total 4.3 0.2 - 1.3 04/09/2013 [place] [facility] CHEMISTRY Albumin Lvl 3.4 3.5 - 5.0 04/09/2013 LOW [facility] CHEMISTRY ALANINE AMINOTRANSFERASE 4 52 0 - 65 04/09/2013 [facility] CHEMISTRY Calcium Lvl 9.1 8.5 - 10.5 04/09/2013 Normal [facility] CHEMISTRY Total Protein 7.5 6.4 - 8.4 04/09/2013 Normal [facility] CHEMISTRY Alk Phos 266 39 - 136 04/09/2013 [facility] CHEMISTRY Glucose Lvl 193 70 - 99 04/09/2013 [facility] <sup>6</sup>Interpretive Data: Adult ref erence range values reflect the clinical guidelines
of the [place] [employer]. [facility] CHEMISTRY BUN 7 7 - 22 04/09/2013 Normal [facility] HEMATOLOGY aPTT 33.2 22.9 - 35.8 04/09/2013 Normal <sup>10</sup>Interpretive Data: Heparin Therapeutic Range: 57 - 92 Seconds [facility] HEMATOLOGY PROTIME 13.3 12.0 - 14.7 04/09/2013 Normal [facility] HEMATOLOGY INR 1.02 0.85 - 1.17 04/09/2013 Normal <sup>8</sup>Interpretive Data: RECOMMEND ED RANGES FOR PROTIME INR:
2.0-3.0 for most medical and surgical thromboembolic states.
2.5-3.5 for artificial heart valves and recurrent embolism.

INR SHOULD BE USED ONLY FOR PATIENTS ON STABLE ANTICOAGULANT THERAPY. [facility] HEMATOLOGY MCHC 34.1 32.0 - 36.0 04/09/2013 Normal [facility] HEMATOLOGY RDW 14.3 11.5 - 14.5 04/09/2013 Normal [facility] HEMATOLOGY MCH 30.3 27.0 - 31.0 04/09/2013 Normal [facility] HEMATOLOGY Platelet 224 133 - 450 04/09/2013 Normal [facility] HEMATOLOGY MPV 7.9 7.4 - 10.4 04/09/2013 Normal [facility] HEMATOLOGY WBC X 10x3 5.9 3.7 - 10.4 04/09/2013 Normal [facility] HEMATOLOGY Hgb 15.7 14.0 - 18.0 04/09/2013 Normal [facility] HEMATOLOGY RBC X 10x6 5.19 4.70 - 6.10 04/09/2013 Normal [facility] HEMATOLOGY Hct 46.1 42.0 - 54.0 04/09/2013 Normal [facility] HEMATOLOGY MCV 88.9 80.0 - 94.0 04/09/2013 Normal [facility] HEMATOLOGY Eosinophils # 0.2 0.0 - 0.5 04/09/2013 Normal [facility] HEMATOLOGY Basophils # 0.0 0.0 - 0.2 04/09/2013 Normal [facility] HEMATOLOGY Monocytes 8.7 2.0 - 12.0 04/09/2013 Normal [facility] HEMATOLOGY Eosinophils 4.1 0.0 - 4.0 04/09/2013 [place] [facility] HEMATOLOGY Basophils 0.5 0.0 - 1.0 04/09/2013 Normal [facility] HEMATOLOGY Segs-Bands # 3.7 1.5 - 8.1 04/09/2013 Normal [facility] HEMATOLOGY Lymphocytes # 1.5 1.0 - 5.5 04/09/2013 Normal [facility] HEMATOLOGY Monocytes # 0.5 0.0 - 0.8 04/09/2013 Normal [facility] HEMATOLOGY Lymphocytes 24.7 20.0 - 40.0 04/09/2013 Normal [facility] HEMATOLOGY Segs 62.0 45.0 - 75.0 04/09/2013 Normal [facility] IMMUNOLOGY Hep B Core IgM Negat allison *NA* (04/08/2013 20:35:00) Negati ve 04/09/2013 [facility] IMMUNOLOGY Hep A IgM Negat allison *NA* (04/08/2013 20:35:00) Negati ve 04/09/2013 [facility] IMMUNOLOGY Hep Bs Ag Negat allison *NA* (04/08/2013 20:35:00) Negati ve 04/09/2013 [facility] IMMUNOLOGY Hep C Ab Negat allison *NA* (04/08/2013 20:35:00) Negati ve 04/09/2013 [facility] CHEMISTRY Magnesium Lvl 1.9 1.8 - 2.4 04/08/2013 Normal [facility] CHEMISTRY Lipase Lvl 211 73 - 393 04/08/2013 Normal [facility] CHEMISTRY A/G Ratio 0.9 0.7 - 1.6 04/08/2013 Normal [facility] CHEMISTRY Globulin 4.3 2.0 - 4.0 04/08/2013 [facility] CHEMISTRY B/C Ratio 16 6 - 25 04/08/2013 Normal [facility] CHEMISTRY AGAP 11.6 10.0 - 20.0 04/08/2013 Normal [facility] CHEMISTRY eGFR 106 04/08/2013 <sup>5</sup>Result Comment: The eGFR is calculated using the CKD-EPI formula. In most young, healthy individuals the eGFR will be >90 mL/min/1.73m2. The eGFR declines with age. An eGFR of 60-89 may be normal in some populations, particularly the elderly, for whom the CKD-EPI formula has not been extensively validated. Use of the eGFR is not recommended in the following populations:& lt;br/>
Individuals with unstable creatinine concentrations, including patients and those with serious co-morbid conditions.

Patients with extremes in muscle mass or diet.

The data above are obtained from the National Kidney Disease Education Program (NKDEP) which additionally recommends that when the eGFR is used in patients with extremes of body mass index for purposes of drug dosing, the eGFR should be multiplied by the estimated BMI. [facility] CHEMISTRY Albumin Lvl 3.8 3.5 - 5.0 04/08/2013 Normal [facility] CHEMISTRY Potassium Lvl 3.6 3.5 - 5.1 04/08/2013 Normal [facility] CHEMISTRY Chloride Lvl 101 95 - 109 04/08/2013 Normal [facility] CHEMISTRY Total Protein 8.1 6.4 - 8.4 04/08/2013 Normal [facility] CHEMISTRY CO2 29 24 - 32 04/08/2013 Normal [facility] CHEMISTRY Calcium Lvl 9.8 8.5 - 10.5 04/08/2013 Normal [facility] CHEMISTRY Sodium Lvl 138 135 - 145 04/08/2013 Normal [facility] CHEMISTRY Glucose Lvl 252 70 - 99 04/08/2013 [facility] <sup>7</sup>Interpretive Data: Adult ref erence range values reflect the clinical guidelines
of the [place] [employer]. [facility] CHEMISTRY BUN 11 7 - 22 04/08/2013 Normal [facility] CHEMISTRY Creatinine Lvl 0.7 0.5 - 1.4 04/08/2013 Normal [facility] CHEMISTRY ASPARTATE TRANSAMINASE 185 0 - 37 04/08/2013 HI [facility] CHEMISTRY ALANINE AMINOTRANSFERASE 5 32 0 - 65 04/08/2013 [facility] CHEMISTRY Alk Phos 288 39 - 136 04/08/2013 HI [facility] CHEMISTRY Bili Total 4.4 0.2 - 1.3 04/08/2013 HI [facility] CHEMISTRY Amylase Lvl 38 25 - 115 04/08/2013 Normal [facility] HEMATOLOGY MCHC 34.1 32.0 - 36.0 04/08/2013 Normal [facility] HEMATOLOGY MCH 30.0 27.0 - 31.0 04/08/2013 Normal [facility] HEMATOLOGY Hct 47.4 42.0 - 54.0 04/08/2013 Normal [facility] HEMATOLOGY MCV 88.1 80.0 - 94.0 04/08/2013 Normal [facility] HEMATOLOGY RBC X 10x6 5.38 4.70 - 6.10 04/08/2013 Normal [facility] HEMATOLOGY WBC X 10x3 6.0 3.7 - 10.4 04/08/2013 Normal [facility] HEMATOLOGY Hgb 16.2 14.0 - 18.0 04/08/2013 Normal [facility] HEMATOLOGY RDW 14.0 11.5 - 14.5 04/08/2013 Normal [facility] HEMATOLOGY MPV 8.1 7.4 - 10.4 04/08/2013 Normal [facility] HEMATOLOGY Platelet 224 133 - 450 04/08/2013 Normal [facility] HEMATOLOGY PROTIME 13.1 12.0 - 14.7 04/08/2013 Normal [facility] HEMATOLOGY aPTT 33.1 22.9 - 35.8 04/08/2013 Normal <sup>11</sup>Interpretive Data: Heparin Therapeutic Range: 57 - 92 Seconds [facility] HEMATOLOGY INR 1.00 0.85 - 1.17 04/08/2013 Normal <sup>9</sup>Interpretive Data: RECOMMEND ED RANGES FOR PROTIME INR:
2.0-3.0 for most medical and surgical thromboembolic states.
2.5-3.5 for artificial heart valves and recurrent embolism.

INR SHOULD BE USED ONLY FOR PATIENTS ON STABLE ANTICOAGULANT THERAPY. [facility] HEMATOLOGY Lymphocytes 18.7 20.0 - 40.0 04/08/2013 LOW [facility] HEMATOLOGY Monocytes 7.6 2.0 - 12.0 04/08/2013 Normal [facility] HEMATOLOGY Segs 70.1 45.0 - 75.0 04/08/2013 Normal [facility] HEMATOLOGY Eosinophils # 0.2 0.0 - 0.5 04/08/2013 Normal [facility] HEMATOLOGY Monocytes # 0.5 0.0 - 0.8 04/08/2013 Normal [facility] HEMATOLOGY Basophils 0.4 0.0 - 1.0 04/08/2013 Normal [facility] HEMATOLOGY Segs-Bands # 4.2 1.5 - 8.1 04/08/2013 Normal [facility] HEMATOLOGY Eosinophils 3.2 0.0 - 4.0 04/08/2013 Normal [facility] HEMATOLOGY Lymphocytes # 1.1 1.0 - 5.5 04/08/2013 Normal [facility] HEMATOLOGY Basophils # 0.0 0.0 - 0.2 04/08/2013 Normal [facility] IMMUNOLOGY CDC-HIV 1/2 Ab Negat allison *NA* (04/08/2013 14:19:00) Negati ve 04/08/2013 [facility] URINALYSIS UA Turbidity Clear (04/08/2013 14:19:00) Clear 04/08/2013 Normal [facility] URINALYSIS UA pH 6.0 5.0 - 8.0 04/08/2013 Normal [facility] URINALYSIS UA Spec Grav 1.041 <=1.030 04/08/2013 HI [facility] URINALYSIS UA Protein 30 mg/dL Negative 04/08/2013 ABN [facility] URINALYSIS UA Bili Moder ate *ABN* (04/08/2013 14:19:00) Negati ve 04/08/2013 ABN [facility] URINALYSIS UA Blood Negat allison (04/08/2013 14:19:00) Negati ve 04/08/2013 Normal [facility] URINALYSIS UA Glucose 500 mg/dL Negative 04/08/2013 ABN [facility] URINALYSIS UA Ketones Trace mg/dL Negative 04/08/2013 ABN [facility] URINALYSIS UA WBC 1 0 - 5 04/08/2013 Normal [facility] URINALYSIS UA RBC 1 0 - 2 04/08/2013 Normal [facility] URINALYSIS UA Nitrite Negat allison (04/08/2013 14:19:00) Negati ve 04/08/2013 Normal [facility] URINALYSIS UA Urobilinogen 4.0 0.1 - 1.0 04/08/2013 [facility] URINALYSIS UA Leuk Est Negat allison (04/08/2013 14:19:00) Negati ve 04/08/2013 Normal [facility] URINALYSIS UA Color Nerissa 04/08/2013 [facility] URINALYSIS UA Sq Epi None Seen 04/08/2013 [facility] CHEMISTRY Troponin-I <0.02 0.00 - 0.40 01/10/2013 Normal [facility] CHEMISTRY A/G Ratio 0.9 0.7 - 1.6 01/10/2013 Normal [facility] CHEMISTRY B/C Ratio 14 6 - 25 01/10/2013 Normal [facility] CHEMISTRY Globulin 4.1 2.0 - 4.0 01/10/2013 [facility] CHEMISTRY AGAP 12.9 10.0 - 20.0 01/10/2013 Normal [facility] CHEMISTRY eGFR 106 01/10/2013 NA <sup>1</sup>Result Comment: The eGFR is calculated using the CKD-EPI formula. In most young, healthy individuals the eGFR will be >90 mL/min/1.73m2. The eGFR declines with age. An eGFR of 60-89 may be normal in some populations, particularly the elderly, for whom the CKD-EPI formula has not been extensively validated. Use of the eGFR is not recommended in the following populations:& lt;br/>
Individuals with unstable creatinine concentrations, including patients and those with serious co-morbid conditions.

Patients with extremes in muscle mass or diet.

The data above are obtained from the National Kid[employer] Disease Education Program (NKDEP) which additionally recommends that when the eGFR is used in patients with extremes of body mass index for purposes of drug dosing, the eGFR should be multiplied by the estimated BMI. [facility] CHEMISTRY Total Protein 7.9 6.4 - 8.4 01/10/2013 Normal [facility] CHEMISTRY Albumin Lvl 3.8 3.5 - 5.0 01/10/2013 Normal [facility] CHEMISTRY Calcium Lvl 9.2 8.5 - 10.5 01/10/2013 Normal [facility] CHEMISTRY Creatinine Lvl 0.7 0.5 - 1.4 01/10/2013 Normal [facility] CHEMISTRY CO2 30 24 - 32 01/10/2013 Normal [facility] CHEMISTRY Bili Total 0.8 0.2 - 1.3 01/10/2013 Normal [facility] CHEMISTRY AST 45 0 - 37 01/10/2013 [facility] CHEMISTRY ALT 73 0 - 65 01/10/2013 [facility] CHEMISTRY Alk Phos 133 39 - 136 01/10/2013 Normal [facility] CHEMISTRY Glucose Lvl 200 70 - 99 01/10/2013 HI <sup>2</sup>Interpretive Data: Adult ref erence range values reflect the clinical guidelines
of the [place] [employer]. [facility] CHEMISTRY BUN 10 7 - 22 01/10/2013 Normal [facility] CHEMISTRY Potassium Lvl 3.9 3.5 - 5.1 01/10/2013 Normal [facility] CHEMISTRY Chloride Lvl 100 95 - 109 01/10/2013 Normal [facility] CHEMISTRY Sodium Lvl 139 135 - 145 01/10/2013 Normal [facility] CHEMISTRY Lipase Lvl 107 73 - 393 01/10/2013 Normal [facility] HEMATOLOGY Eosinophils 1.3 0.0 - 4.0 01/10/2013 Normal [facility] HEMATOLOGY Segs-Bands # 7.1 1.5 - 8.1 01/10/2013 Normal [facility] HEMATOLOGY Basophils 0.5 0.0 - 1.0 01/10/2013 Normal [facility] HEMATOLOGY Lymphocytes # 1.1 1.0 - 5.5 01/10/2013 Normal [facility] HEMATOLOGY Monocytes # 1.0 0.0 - 0.8 01/10/2013 [facility] HEMATOLOGY Basophils # 0.1 0.0 - 0.2 01/10/2013 Normal [facility] HEMATOLOGY Eosinophils # 0.1 0.0 - 0.5 01/10/2013 Normal [facility] HEMATOLOGY Monocytes 10.5 2.0 - 12.0 01/10/2013 Normal [facility] HEMATOLOGY Lymphocytes 12.2 20.0 - 40.0 01/10/2013 LOW [facility] HEMATOLOGY Segs 75.5 45.0 - 75.0 01/10/2013 HI [facility] RDW 13.4 11.5 - 14.5 01/10/2013 Normal [facility] MCHC 33.5 32.0 - 36.0 01/10/2013 Normal [facility] MPV 7.9 7.4 - 10.4 01/10/2013 Normal [facility] Platelet 174 133 - 450 01/10/2013 Normal [facility] Hgb 15.6 14.0 - 18.0 01/10/2013 Normal [facility] WBC 9.4 3.7 - 10.4 01/10/2013 Normal [facility] RBC 5.05 4.70 - 6.10 01/10/2013 Normal [facility] MCH 30.9 27.0 - 31.0 01/10/2013 Normal [facility] MCV 92.4 80.0 - 94.0 01/10/2013 Normal [facility] Hct 46.7 42.0 - 54.0 01/10/2013 Normal [facility] Pathology Reports No Data Provided for This Section Diagnostic Reports Report Value Date Source Femur series DX EXAM: XR LEFT FEMUR 2 VIEWS DATE: 09/25/2019 11:05 CDT INDICATION: -Left hip pain, patient in wheelchair, fell 4 weeks prior COMPARISON: None. TECHNIQUE: AP and lateral radiographs of the femur FINDINGS: Transcervical left femoral neck fracture with superior displacement and mild varus angulation of the femur. Mild degenerative changes of the left hip. Left hip joint is otherwise congruent. No other fracture identified. Degenerative changes of the left knee. There is generalized bony demineralization. Atrophy of the thigh and calf muscles is noted. IMPRESSION: Transcervical left femoral neck fracture with varus angulation. Findings reported to Dr. Wilson via telephone at [address] Lopez on 09/25/2019. 09/25/2019 HENRIK Campos Endoscopic Retro Pancreatogram ERCP ERCP INDICATION: Abdominal pain COMPARISON: None IMPRESSION: Multiple fluoroscopic spot radiographs are submitted, demonstrating ERCP. Refer to the operating clinician's report for further discussion. SL: 16 04/10/2013 [facility] Gallbladder scan TRICIAA wo melba ([place]) HEPATOBILIARY SCAN: PROCEDURE: 6.0 mCi of technetium 99m Choletec were given intravenously followed by anterior imaging over the upper abdomen. Delayed images were care 2 hours. FINDINGS: There is prompt uptake of activity by the liver with persistent activity in the liver throughout the course of the exam without excretion. The gallbladder has been recently removed. The biliary tree is never visualized. There is a small amount of activity in the duodenal region and stomach on the 2 hour delayed image. No definite extravasation is seen, although would be difficult to rule out a bile leak on this particular study. IMPRESSION: Findings consistent with cholestasis, which could be anywhere from the canalicular level to the distal common duct. The recent CT was reviewed shows a probable distal common bile duct stone at the ampulla. ADDENDUM: Report was called to Dr. Grubbs's office regarding the possibility of a distal common duct stone and discussed with his nurse. SL:13 04/09/2013 [facility] Chest/Abdomen/Pelvis w contrast CT CT scan of the chest with contrast: Exam reason: Trauma Patient fell through ceiling to floor. Complains of right flank pain and left lower abdominal tenderness Multiple computerized axial tomograms of the chest were obtained during intravenous contrast administration. Cervicothoracic kyphosis and spondylosis are noted. A 1.4 x 1.8 cm well- circumscribed soft tissue mass is noted at the subcutaneous fat of the lateral chest wall likely representing a lateral thoracic enlarged lymph node. No axillary, mediastinal or hilar adenopathy is noted. There is air and fluid noted within the esophageal lumen which may indicate reflux or esophageal dysmotility. Correlation with outpatient esophagography is suggested. Tiny hiatal hernia with patulous EG junction is noted. No mediastinal hematoma is noted. No pneumothorax or pulmonary contusion is noted. No consolidation or pleural fluid collection is noted. The central tracheobronchial tree is grossly normal. Dependent volume loss is noted at the posterior costophrenic angles bilaterally. Nondisplaced fractures at the dorsolateral right seventh and eighth ribs are noted. IMPRESSION: 1.Nondisplaced fractures at the dorsolat eral right seventh and eighth ribs are noted. 2.A 1.4 x 1.8 cm well-circumscribed soft tissue mass is noted at the subcutaneous fat of the lateral chest wall likely representing a lateral thoracic enlarged lymph node. CT scan of the abdomen and pelvis with contrast: Exam reason: Trauma Patient fell through ceiling to floor. Complains of right flank pain and left lower abdominal tenderness Multiple computerized axial tomograms of the abdomen and pelvis were obtained after administration of intravenous contrast. Oral contrast was withheld at the request of the ordering physician. The lack of oral contrast limits evaluation of the enteric tract and mesentery. Diffuse fatty infiltration of the liver is noted. Surgical clips are noted at the gallbladder fossa status post cholecystectomy. Nonspecific left adrenal nodularity is noted statistically likely representing adenomata. No retrocrural adenopathy is noted. Liver, spleen, pancreas, kidneys and adrenal glands have an otherwise normal CT appearance. There is no free fluid or pneumoperitoneum noted. No abdominal adenopathy is noted. The prostate is enlarged measuring 5.5 x 4.5 cm. The seminal vesicles are moderately enlarged. The prostate elevates the base of the bladder. The appendix is normal. Diverticula are present at the sigmoid colon. No free fluid is noted at the pelvis. IMPRESSION: 1. No acute abnormality at the abdomen o r pelvis is noted. SL:12 04/08/2013 [facility] Abdomen RUQ US ADDENDUM: Addit ional images were submitted showing the common duct measuring 4 mm in diameter. SL:13 RIGHT UPPER QUADRANT ULTRASOUND: The gallbladder is mildly distended. There is sludge in the gallbladder lumen without definite stones. There is minimal wall thickening without pericholecystic fluid. The common duct is not visualized on the available images. The liver is enlarged, with a right lobe sagittal span of approximately 18 cm. No focal liver abnormality is seen. Hepatopedal flow in the main portal vein is demonstrated. The pancreas is obscured by gas. The right kidney is unremarkable. IMPRESSION: 1. Distended gallbladder with sludge. Th ere is no evidence of stones. 2. Common duct not visualized. 3. Hepatomegaly. SL:13 01/10/2013 [facility] Consultation Notes No Data Provided for This Section Discharge Summaries No Data Provided for This Section History and Physicals No Data Provided for This Section Vital Signs Vital Sign Value Date Comments Source Temperature Oral (F) 98.0 F 04/11/2013 [facility] Heart Rate 69 04/11/2013 [facility] Diastolic (mm Hg) 74 04/11/2013 [facility] Systolic (mm Hg) 124 04/11/2013 [facility] Respitory Rate 18 04/11/2013 [facility] Respitory Rate 14 04/11/2013 [facility] Temperature Oral (F) 98.5 F 04/11/2013 [facility] Heart Rate 60 04/11/2013 [facility] Systolic (mm Hg) 148 04/11/2013 [facility] Diastolic (mm Hg) 68 04/11/2013 [facility] Respitory Rate 16 04/11/2013 [facility] Heart Rate 63 04/11/2013 [facility] Temperature Oral (F) 98.0 F 04/11/2013 [facility] Diastolic (mm Hg) 78 04/11/2013 [facility] Systolic (mm Hg) 160 04/11/2013 [facility] Height 160.02 cm 04/09/2013 [facility] Weight 74.545 04/09/2013 [facility] Height 160.02 cm 04/08/2013 [facility] Weight 74.545 04/08/2013 [facility] Heart Rate 91 01/10/2013 [facility] Temperature Oral (F) 99.0 F 01/10/2013 [facility] Diastolic (mm Hg) 69 01/10/2013 [facility] Systolic (mm Hg) 141 01/10/2013 [facility] Respitory Rate 18 01/10/2013 [facility] Temperature Oral (F) 97.8 F 01/10/2013 [facility] Systolic (mm Hg) 164 01/10/2013 [facility] Diastolic (mm Hg) 80 01/10/2013 [facility] Heart Rate 82 01/10/2013 [facility] Respitory Rate 18 01/10/2013 [facility] Height 172.72 cm 01/10/2013 [facility] Weight 72.727 01/10/2013 [facility] Encounters Location Location Details Encounter Type Encounter Number Reason For Visit Attending Provider ADM Date DC Date Status Source [facility] Emergency [id number] ABDOMINAL PAIN JANNY GALEANA 01/10/2013 01/10/2013 Active [facility] Inpatient [id number] ELEVATED LIVER EN ZYMES, RIGHT RIB FRACTURE, ABDOMINAL P SANTANA TEQWIMUAH 04/08/2013 04/11/2013 Active [facility] [id number] Zachary Wilson 09/25/2019 09/26/2019 HENRIK Campos Procedures Procedure Code Date Perfomer Comments Source Cholecystectomy [id number] HENRIK Campos,[facility] Assessment and Plan No Data Provided for This Section Plan of Care No Data Provided for This Section Social History Social History Date Source Social History TypeResponse 09/26/2019 MICHAEL Campos Family History No Data Provided for This Section Advance Directives No Data Provided for This Section Functional Status No Data Provided for This Section
[2019-10-08] MEDS ORDERED: SODIUM CHLORIDE 0.9% 1000ML 1,000 ML IV SCH (14:00)
--- NOTE | 2019-10-08 14:41 | Diagnostic Imaging Report ---
Chest, 2 views, 10/08/2019. History: Left hip fracture. Comparison: None available. Findings: The cardiomediastinal silhouette and pulmonary vasculature are within normal limits. The lungs are clear without evidence of consolidation or pleural effusion. Degenerative changes are noted in the shoulders and thoracic spine. There are no acute osseous or soft tissue abnormalities. Impression: No acute cardiopulmonary abnormality. Signed by: Quinton Tony on 10/08/2019 2:38 PM
[2019-10-08] MEDS: ONDANSETRON HCL INJ 2MG/ML 2ML 2 MG/ML VIAL IV PRN ×3 (15:07→23:44)
[2019-10-08] MEDS: MORPHINE SULFATE INJ 4 MG/ML INJ 1ML IV PRN ×3 (15:07→23:44)
--- OUTSIDE RECORDS SUMMARY | 2019-10-08 15:11 | XMS REPORT ---
Author Author [facility] t Organization [facility] Address [address] [place] [address] [address] [place] [address] Phone Unavailable Care Team Providers Care [id number] Consultant Name Role Phone DEE DEE BRAMBILA Attjignesh Unavailable Leopoldo Wilson Attjignesh KLAUS CONN Unavailable Problems This patient has no known problems. Allergies, Adverse Reactions, Alerts This patient has no known allergies or adverse reactions. Medications This patient has no known medications. Procedures This patient has no known procedures. Encounters Start Date/Time End Date/Time Encounter Type Admission Type [facility] Care Department Encounter ID Source 2019-09-25 11:02:00 2019-09-25 23:59:00 [id number] Out[facility] Imaging Herm toney 2013-04-08 11:05:00 2013-04-11 14:30:00 Outpatient [facility] [id number] Results Test Description Test Time Test Comments Results Result Comments Source CHEST 2 VIEWS 2019-10-08 14:37:00 [facility] [address] [place], [place] [address] Patient Name: GABRIEL LAU MR #: [id number] : 1955 Age/Sex: 64/M Req #: [id number] Adm Physician: Ordered by: DEE DEE BRAMBILA DO Report #: [id number] Location: ER Room/Bed: Procedure: [id number] DX/CHEST 2 VIEWS Exam Date: 10/08/19 Exam Time: 1400 REPORT STATUS: Signed Chest, 2 views, 10/08/2019. History: Left hip fracture. Comparison: None available. Findings: The cardiomediastinal silhouette and pulmonary vasculature are within normal limits. The lungs are clear without evidence of consolidation or pleural effusion. Degenerative changes are noted in the shoulders and thoracic spine. There are no acute osseous or soft tissue abnormalities. Impression: No acute cardiopulmonary abnormality. Signed by: Dee Dee Tony on 10/08/2019 2:38 PM Dictated By: DEE DEE TONY MD [id number] Transcribed By: KASSIDY on 10/08/19 1438 COPY TO: DEE DEE BRAMBILA DO
--- OUTSIDE RECORDS SUMMARY | 2019-10-08 15:11 | XMS REPORT | Continuity of Care Document ---
Author Author Mehnaz Campos [employer], GABRIEL [facility] [employer] Address Unknown Phone Unavailable Care Team Providers Care Accountant Manager Name Role Phone [facility] [employer] Unavailable Un available Problems Problem Status Onset Date Classification Date Reported Comments Source M79.662 - PAIN IN LEFT LOWER LEG Active 09/24/2019 HENRIK Campos ELEVATED LIVER ENZYMES, RIGHT RIB FRACTU Active 04/08/2013 [facility] ABD PAIN Active 04/08/2013 [facility] ABDOMINAL PAIN Active 01/10/2013 [facility] DM - Diabetes mellitus Active Problem 01/12/2013 [facility] HTN - Hypertension Active Problem 01/12/2013 [facility] Diabetes mellitus (disorder) A ctive Problem 11/2019 [facility] Hypertensive disorder, systemic arterial (disorder) Resolved Problem 09/27/2019 PT denies high bloo d pressure [facility] Hyperthyroidism (disorder) Act allison Problem 11/2019 [facility] ABDMNAL PAIN UNSPCF SITE Active [facility] Medications Medication Details Route Status Patient Instructions Ordering Provider Order Date Source [place] 5/325 oral tablet 1 tab, PO, Q4-6H, PRN, 30 tab, as needed for pain, Substitution Allowed, Maintenance Active [place] 04/11/2013 [facility] NO Aspirin / NSAIDS / Blood thinners NO Aspirin / NSAIDS / Blood thinners, 1, Drug form: MISC, Route: MISC, Continuous, 04/10/13 15:30:00, Duration: 30 day, Stop date: 05/10/13 15:29:00 No Longer Active Verón[place] 04/10/2013 [facility] pneumococcal 23-valent vaccine 0.5 ml, Route: IM, Drug Form: INJ, Start date: 04/09/13 9:00:00, Stop date: 04/09/13 9:00:00 Inactive SYSTEM 04/09/2013 [facility] influenza virus vaccine, inactivated 0.5 mL, Route: IM, Drug Form: SUSP, Start date: 04/09/13 9:00:00, Stop date: 04/09/13 9:00:00 Inactive SYSTEM 04/09/2013 [facility] levothyroxine 100 microgram, 1 tab, Route: PO, Drug form: TAB, Q630AM, Dosing Weight 74.545, kg, Start date: 04/09/13 6:30:00, Duration: 30 day, Stop date: 05/08/13 6:30:00Take 1 hour before or 2 hours after meal; Enteral feeds may interefere with the absorption of this medication. (Same as:Levothroid, Synthroid) No Longer Active [facility] 04/09/2013 [facility] clonidine 0.1 mg oral tablet 0 .1 mg, 1 tab, Route: PO, Drug form: TAB, Q8H, Dosing Weight 74.545, kg, PRN Elevated BP, Start date: 04/08/13 21:22:00, Duration: 30 day, Stop date: 05/08/13 21:21:00(Same As: Catapres) No Longer Active [facility] 04/09/2013 [facility] morphine Sulfate 4 mg, 2 mL, R oute: IVP, Drug form: INJ, Q3H, Dosing Weight 74.545, kg, PRN Pain Score 7-10, Start date: 04/08/13 20:34:00, Duration: 30 day, Stop date: 05/08/13 20:33:00(Same as:MORPhine Sulfate) No Longer Active [facility] 04/09/2013 [facility] ondansetron 4 mg, 2 mL, Route: IVP, Drug form: INJ, Q8H, Dosing Weight 74.545, kg, PRN Nausea & Vomiting, Start date: 04/08/13 20:34:00, Duration: 30 day, Stop date: 05/08/13 20:33:00(Same as: Zofran) No Longer Active [facility] 04/09/2013 [facility] glucagon 1 mg, Route: IM, Drug form: PDR/INJ, PRN, Dosing Weight 74.545, kg, PRN Blood Glucose Results, Start date: 04/08/13 18:53:00, Duration: 30 day, Stop date: 05/08/13 18:52:00 No Longer Active [place] 04/09/2013 [facility] insulin aspart 2 unit, 0.02 mL [...] from Date No Longer Active [place] 04/09/2013 [facility] Dextrose 50% Syringe 25 gm, 50 mL, Route: IVP, Drug Form: INJ, Dosing Weight 74.545, kg, PRN, PRN Blood Glucose Results, Start date: 04/08/13 18:53:00, Duration: 30 day, Stop date: 05/08/13 18:52:00 No Longer Active [place] 04/09/2013 [facility] levothyroxine 100 mcg (0.1 mg) oral tablet 100 microgram, 1 tab, PO, Daily, Substitution Allowed Active [place] 04/09/2013 [facility] metFORmin 1000 mg oral tablet 1,000 mg, 1 tab, PO, BID, Substitution Allowed Active 04/09/2013 [facility] [place] 5/325 oral tablet 1 tab, Route: PO, Drug Form: TAB, Dosing Weight 74.545, kg, Q6H, PRN Pain, Start date: 04/08/13 18:43:00, Duration: 30 day, Stop date: 05/08/13 18:42:00(Same as: [place] 325/5) Do not exceed 4gm/day of acetaminophen. No Longer Active [place] 04/09/2013 [facility] Zofran 4 mg, 2 mL, Route: IVP, Drug form: INJ, Q8H, Dosing Weight 74.545, kg, PRN as needed for nausea/vomiting, Priority: STAT, Start date: 04/08/13 18:43:00, Duration: 30 day, Stop date: 05/08/13 18:42:00 (Same as: Zofran) [facility] NS 1,000 mL 1,000 mL, Rate: 10 0 ml/hr, Infuse over: 10 hr, Route: IV, Dosing Weight 74.545 kg, Total Volume: 1,000, Start date: 04/08/13 18:42:00, Duration: 30 day, Stop date: 05/08/13 18:41:00 No Longer [facility]2013 [facility] Sodium Chloride 0.9% (Bolus) IV 1000 mL 1,000 mL, Rate: 1,000 ml/hr, Infuse over: 1 hr, Route: IV, Dosing Weight 74.545 kg, Total Volume: 1,000, Priority: STAT, Start date: 04/08/13 15:05:00, Duration: 1 doses or times, Stop date: 04/08/13 16:04:00, Bolus DoseBolus Dose Inactive [facility] 04/08/2013 [facility] Zofran 4 mg, Route: IVP, Drug form: INJ, ONCE, Dosing Weight 74.545, kg, Priority: STAT, Start date: 04/08/13 15:05:00, Stop date: 04/08/13 15:05:00 Inactive [facility] 04/08/2013 [facility] morphine Sulfate 4 mg, Route: IVP, Drug form: INJ, ONCE, Dosing Weight 74.545, kg, Priority: STAT, Start date: 04/08/13 15:05:00, Stop date: 04/08/13 15:05:00 Inactive [facility] 04/08/2013 [facility] Saline Flush 0.9% 5 mL, Route: IVP, Drug Form: INJ, Dosing Weight 74.545, kg, PRN, PRN Line Flush, Start date: 04/08/13 13:22:00, Duration: 24 hr, Stop date: 04/09/13 13:21:00Same as: BD Posiflush Sterile Inactive [facility]2013 [facility] [place] 5/325 oral tablet 1 - 2 TABS, PO, Q6H, PRN, 20 tab, as needed for pain, Substitution Allowed, Maintenance, TAB PO Active Blake 01/10/2013 [facility] Zofran ODT 4 mg oral tablet, disintegrating 4 mg ODT, PO, Q4H, PRN Nausea and Vomiting, 20 tab, Substitution AllowedPRN Nausea and Vomiting PO Active [place] 01/10 [facility] Dilaudid 1 mg, Route: IV, ONCE , Dosing Weight 72.727, kg, Priority: STAT, Start date: 01/10/13 17:28:00, Stop date: 01/10/13 17:28:00 IV No Longer Active [place] 01/10 [facility] Zofran 4 mg, Route: IVP, Drug form: INJ, ONCE, Dosing Weight 72.727, kg, Priority: STAT, Start date: 01/10/13 15:41:00, Stop date: 01/10/13 15:41:00 IVP No Longer Active [place] 01/10/2013 [facility] morphine Sulfate 4 mg, Route: IVP, ONCE, Dosing Weight 72.727, kg, Priority: STAT, Start date: 01/10/13 15:40:00, Stop date: 01/10/13 15:40:00 IVP No Longer Active [place] 01/10/2013 [facility] Zofran 4 mg, Route: IVP, Drug form: INJ, ONCE, Dosing Weight 72.727, kg, Priority: STAT, Start date: 01/10/13 15:40:00, Stop date: 01/10/13 15:40:00 IVP No Longer Active [place] 01/10/2013 [facility] Sodium Chloride 0.9% (Bolus) IV 500 mL 500 mL, Rate: 500 ml/hr, Infuse over: 1 hr, Route: IV, Dosing Weight 72.727 kg, Total Volume: 500, Bolus Dose, Priority: STAT, Start date: 01/10/13 15:40:00, Duration: 1 doses or times, Stop date: 01/10/13 16:39:00 IV No Longer Active [place] 01/10/2013 [facility] Allergies, Adverse Reactions, Alerts Substance Category Reaction Severity Reaction type Status Date Reported Comments Source No Known Medication Allergies Assertion Drug aller gy HENRIK Campos Immunizations Immunization Date Given Site Status Last Updated Comments Source pneumococcal 23-valent vaccine 04/09/2013 florencio vargas [facility] influenza virus vaccine, inactivated 04/09/2013 florencio George [facility] pneumococcal 23-valent vaccine 04/09/2013 Right deltoid completed Doris HENRIK Campos influenza virus vaccine, inactivated 04/09/2013 Left deltoid completed Doris HENRIK Campos Results Order Name Results Value Reference Range Date Interpretation Comments Source BEDSIDE GLUCOSE TESTING Gluc POC Com ment 1 Notified RN/ 04/11/2013 [facility] BEDSIDE GLUCOSE TESTING Glucose POC 188 70 - 99 04/11/2013 [facility] <sup>1</sup>Interpretive Data: Upper Reportable Limit: 200 mg/dL. [facility] CHEMISTRY Bili Direct 1.2 0.0 - 0.3 04/11/2013 [facility] CHEMISTRY ASPARTATE TRANSAMINASE 58 0 - 37 04/11/2013 [facility] CHEMISTRY Alk Phos 252 39 - 136 04/11/2013 [facility] CHEMISTRY Bili Total 2.2 0.2 - 1.3 04/11/2013 HI [facility] CHEMISTRY Total Protein 7.3 6.4 - 8.4 04/11/2013 Normal [facility] CHEMISTRY Albumin Lvl 3.3 3.5 - 5.0 04/11/2013 LOW [facility] CHEMISTRY ALANINE AMINOTRANSFERASE 2 50 0 - 65 04/11/2013 [facility] CHEMISTRY Bili Indirect 1.0 0.0 - 1.0 04/11/2013 Normal [facility] CHEMISTRY Globulin 4.0 2.0 - 4.0 04/11/2013 Normal [facility] CHEMISTRY A/G Ratio 0.8 0.7 - 1.6 04/11/2013 Normal [facility] HEMATOLOGY MCHC 34.4 32.0 - 36.0 04/11/2013 Normal [facility] HEMATOLOGY RDW 14.2 11.5 - 14.5 04/11/2013 Normal [facility] HEMATOLOGY MPV 8.3 7.4 - 10.4 04/11/2013 Normal [facility] HEMATOLOGY MCH 30.2 27.0 - 31.0 04/11/2013 Normal [facility] HEMATOLOGY Platelet 192 133 - 450 04/11/2013 Normal [facility] HEMATOLOGY Hct 43.2 42.0 - 54.0 04/11/2013 Normal [facility] HEMATOLOGY RBC X 10x6 4.92 4.70 - 6.10 04/11/2013 Normal [facility] HEMATOLOGY Hgb 14.8 14.0 - 18.0 04/11/2013 Normal [facility] HEMATOLOGY WBC X 10x3 6.0 3.7 - 10.4 04/11/2013 Normal [facility] HEMATOLOGY MCV 87.8 80.0 - 94.0 04/11/2013 Normal [facility] HEMATOLOGY Eosinophils 3.5 0.0 - 4.0 04/11/2013 Normal [facility] HEMATOLOGY Basophils # 0.0 0.0 - 0.2 04/11/2013 Normal [facility] HEMATOLOGY Monocytes # 0.5 0.0 - 0.8 04/11/2013 Normal [facility] HEMATOLOGY Eosinophils # 0.2 0.0 - 0.5 04/11/2013 Normal [facility] HEMATOLOGY Lymphocytes # 1.7 1.0 - 5.5 04/11/2013 Normal [facility] HEMATOLOGY Basophils 0.7 0.0 - 1.0 04/11/2013 Normal [facility] HEMATOLOGY Segs-Bands # 3.5 1.5 - 8.1 04/11/2013 Normal [facility] HEMATOLOGY Monocytes 8.9 2.0 - 12.0 04/11/2013 Normal [facility] HEMATOLOGY Segs 58.6 45.0 - 75.0 04/11/2013 Normal [facility] Lymphocytes 28.3 20.0 - 40.0 04/11/2013 Normal [facility] BEDSIDE GLUCOSE TESTING Gluc POC Com ment 1 Notified RN/ 04/11/2013 [facility] BEDSIDE GLUCOSE TESTING Glucose POC 210 70 - 99 04/11/2013 [facility] <sup>2</sup>Interpretive Data: Upper Reportable Limit: 200 mg/dL. [facility] BEDSIDE GLUCOSE TESTING Gluc POC Com ment 1 Notified RN/ 04/10/2013 [facility] BEDSIDE GLUCOSE TESTING Glucose POC 153 70 - 99 04/10/2013 [facility] <sup>3</sup>Interpretive Data: Upper Reportable Limit: 200 mg/dL. [facility] CHEMISTRY A/G Ratio 0.8 0.7 - 1.6 04/09/2013 Normal [facility] CHEMISTRY AGAP 11.6 10.0 - 20.0 04/09/2013 Normal [facility] CHEMISTRY B/C Ratio 12 6 - 25 04/09/2013 Normal [facility] CHEMISTRY Globulin 4.1 2.0 - 4.0 04/09/2013 HI [facility] CHEMISTRY ASPARTATE TRANSAMINASE 149 0 - 37 04/09/2013 HI [facility] CHEMISTRY eGFR 112 04/09/2013 <sup>4</sup>Result Comment: [...] should be multiplied by the estimated BMI. [facility] CHEMISTRY Chloride Lvl 101 95 - 109 04/09/2013 Normal [facility] CHEMISTRY Creatinine Lvl 0.6 0.5 - 1.4 04/09/2013 Normal [facility] CHEMISTRY Sodium Lvl 139 135 - 145 04/09/2013 Normal [facility] CHEMISTRY Potassium Lvl 3.6 3.5 - 5.1 04/09/2013 Normal [facility] CHEMISTRY CO2 30 24 - 32 04/09/2013 Normal [facility] CHEMISTRY Bili Total 4.3 0.2 - 1.3 04/09/2013 HI [facility] CHEMISTRY Albumin Lvl 3.4 3.5 - 5.0 04/09/2013 LOW [facility] CHEMISTRY ALANINE AMINOTRANSFERASE 4 52 0 - 65 04/09/2013 [facility] CHEMISTRY Calcium Lvl 9.1 8.5 - 10.5 04/09/2013 Normal [facility] CHEMISTRY Total Protein 7.5 6.4 - 8.4 04/09/2013 Normal [facility] CHEMISTRY Alk Phos 266 39 - 136 04/09/2013 HI [facility] CHEMISTRY Glucose Lvl 193 70 - 99 04/09/2013 [facility] <sup>6</sup>Interpretive Data: Adult ref erence range values reflect the clinical guidelines
of the [place] [employer]. [facility] CHEMISTRY BUN 7 7 - 22 04/09/2013 Normal [facility] HEMATOLOGY aPTT 33.2 22.9 - 35.8 04/09/2013 Normal <sup>10</sup>Interpretive Data: Heparin Therapeutic Range: 57 - 92 Seconds [facility] HEMATOLOGY PROTIME 13.3 12.0 - 14.7 04/09/2013 Normal [facility] HEMATOLOGY INR 1.02 0.85 - 1.17 04/09/2013 Normal <sup>8</sup>Interpretive Data: RECOMMEND ED RANGES FOR PROTIME INR:
2.0-3.0 for most medical and surgical thromboembolic states.
2.5-3.5 for artificial heart valves and recurrent embolism.

INR SHOULD BE USED ONLY FOR PATIENTS ON STABLE ANTICOAGULANT THERAPY. [facility] HEMATOLOGY MCHC 34.1 32.0 - 36.0 04/09/2013 Normal [facility] HEMATOLOGY RDW 14.3 11.5 - 14.5 04/09/2013 Normal [facility] HEMATOLOGY MCH 30.3 27.0 - 31.0 04/09/2013 Normal [facility] HEMATOLOGY Platelet 224 133 - 450 04/09/2013 Normal [facility] HEMATOLOGY MPV 7.9 7.4 - 10.4 04/09/2013 Normal [facility] HEMATOLOGY WBC X 10x3 5.9 3.7 - 10.4 04/09/2013 Normal [facility] HEMATOLOGY Hgb 15.7 14.0 - 18.0 04/09/2013 Normal [facility] HEMATOLOGY RBC X 10x6 5.19 4.70 - 6.10 04/09/2013 Normal [facility] HEMATOLOGY Hct 46.1 42.0 - 54.0 04/09/2013 Normal [facility] HEMATOLOGY MCV 88.9 80.0 - 94.0 04/09/2013 Normal [facility] HEMATOLOGY Eosinophils # 0.2 0.0 - 0.5 04/09/2013 Normal [facility] HEMATOLOGY Basophils # 0.0 0.0 - 0.2 04/09/2013 Normal [facility] HEMATOLOGY Monocytes 8.7 2.0 - 12.0 04/09/2013 Normal [facility] HEMATOLOGY Eosinophils 4.1 0.0 - 4.0 04/09/2013 HI [facility] HEMATOLOGY Basophils 0.5 0.0 - 1.0 04/09/2013 Normal [facility] HEMATOLOGY Segs-Bands # 3.7 1.5 - 8.1 04/09/2013 Normal [facility] HEMATOLOGY Lymphocytes # 1.5 1.0 - 5.5 04/09/2013 Normal [facility] HEMATOLOGY Monocytes # 0.5 0.0 - 0.8 04/09/2013 Normal [facility] HEMATOLOGY Lymphocytes 24.7 20.0 - 40.0 04/09/2013 Normal [facility] HEMATOLOGY Segs 62.0 45.0 - 75.0 04/09/2013 Normal [facility] IMMUNOLOGY Hep B Core IgM Negat allison *NA* (04/08/2013 20:35:00) Negati ve 04/09/2013 [facility] IMMUNOLOGY Hep A IgM Negat allison *NA* (04/08/2013 20:35:00) Negati ve 04/09/2013 [facility] IMMUNOLOGY Hep Bs Ag Negat allison *NA* (04/08/2013 20:35:00) Negati ve 04/09/2013 [facility] IMMUNOLOGY Hep C Ab Negat allison *NA* (04/08/2013 20:35:00) Negati ve 04/09/2013 [facility] CHEMISTRY Magnesium Lvl 1.9 1.8 - 2.4 04/08/2013 Normal [facility] CHEMISTRY Lipase Lvl 211 73 - 393 04/08/2013 Normal [facility] CHEMISTRY A/G Ratio 0.9 0.7 - 1.6 04/08/2013 Normal [facility] CHEMISTRY Globulin 4.3 2.0 - 4.0 04/08/2013 [facility] CHEMISTRY B/C Ratio 16 6 - 25 04/08/2013 Normal [facility] CHEMISTRY AGAP 11.6 10.0 - 20.0 04/08/2013 Normal [facility] CHEMISTRY eGFR 106 04/08/2013 <sup>5</sup>Result Comment: [...] should be multiplied by the estimated BMI. [facility] CHEMISTRY Albumin Lvl 3.8 3.5 - 5.0 04/08/2013 Normal [facility] CHEMISTRY Potassium Lvl 3.6 3.5 - 5.1 04/08/2013 Normal [facility] CHEMISTRY Chloride Lvl 101 95 - 109 04/08/2013 Normal [facility] CHEMISTRY Total Protein 8.1 6.4 - 8.4 04/08/2013 Normal [facility] CHEMISTRY CO2 29 24 - 32 04/08/2013 Normal [facility] CHEMISTRY Calcium Lvl 9.8 8.5 - 10.5 04/08/2013 Normal [facility] CHEMISTRY Sodium Lvl 138 135 - 145 04/08/2013 Normal [facility] CHEMISTRY Glucose Lvl 252 70 - 99 04/08/2013 [facility] <sup>7</sup>Interpretive Data: Adult ref erence range values reflect the clinical guidelines
of the [place] [employer]. [facility] CHEMISTRY BUN 11 7 - 22 04/08/2013 Normal [facility] CHEMISTRY Creatinine Lvl 0.7 0.5 - 1.4 04/08/2013 Normal [facility] CHEMISTRY ASPARTATE TRANSAMINASE 185 0 - 37 04/08/2013 HI [facility] CHEMISTRY ALANINE AMINOTRANSFERASE 5 32 0 - 65 04/08/2013 [facility] CHEMISTRY Alk Phos 288 39 - 136 04/08/2013 HI [facility] CHEMISTRY Bili Total 4.4 0.2 - 1.3 04/08/2013 HI [facility] CHEMISTRY Amylase Lvl 38 25 - 115 04/08/2013 Normal [facility] HEMATOLOGY MCHC 34.1 32.0 - 36.0 04/08/2013 Normal [facility] HEMATOLOGY MCH 30.0 27.0 - 31.0 04/08/2013 Normal [facility] HEMATOLOGY Hct 47.4 42.0 - 54.0 04/08/2013 Normal [facility] HEMATOLOGY MCV 88.1 80.0 - 94.0 04/08/2013 Normal [facility] HEMATOLOGY RBC X 10x6 5.38 4.70 - 6.10 04/08/2013 Normal [facility] HEMATOLOGY WBC X 10x3 6.0 3.7 - 10.4 04/08/2013 Normal [facility] HEMATOLOGY Hgb 16.2 14.0 - 18.0 04/08/2013 Normal [facility] HEMATOLOGY RDW 14.0 11.5 - 14.5 04/08/2013 Normal [facility] HEMATOLOGY MPV 8.1 7.4 - 10.4 04/08/2013 Normal [facility] HEMATOLOGY Platelet 224 133 - 450 04/08/2013 Normal [facility] HEMATOLOGY PROTIME 13.1 12.0 - 14.7 04/08/2013 Normal [facility] HEMATOLOGY aPTT 33.1 22.9 - 35.8 04/08/2013 Normal <sup>11</sup>Interpretive Data: Heparin Therapeutic Range: 57 - 92 Seconds [facility] HEMATOLOGY INR 1.00 0.85 - 1.17 04/08/2013 Normal <sup>9</sup>Interpretive Data: RECOMMEND ED RANGES FOR PROTIME INR:
2.0-3.0 for most medical and surgical thromboembolic states.
2.5-3.5 for artificial heart valves and recurrent embolism.

INR SHOULD BE USED ONLY FOR PATIENTS ON STABLE ANTICOAGULANT THERAPY. [facility] HEMATOLOGY Lymphocytes 18.7 20.0 - 40.0 04/08/2013 LOW [facility] HEMATOLOGY Monocytes 7.6 2.0 - 12.0 04/08/2013 Normal [facility] HEMATOLOGY Segs 70.1 45.0 - 75.0 04/08/2013 Normal [facility] HEMATOLOGY Eosinophils # 0.2 0.0 - 0.5 04/08/2013 Normal [facility] HEMATOLOGY Monocytes # 0.5 0.0 - 0.8 04/08/2013 Normal [facility] HEMATOLOGY Basophils 0.4 0.0 - 1.0 04/08/2013 Normal [facility] HEMATOLOGY Segs-Bands # 4.2 1.5 - 8.1 04/08/2013 Normal [facility] HEMATOLOGY Eosinophils 3.2 0.0 - 4.0 04/08/2013 Normal [facility] HEMATOLOGY Lymphocytes # 1.1 1.0 - 5.5 04/08/2013 Normal [facility] HEMATOLOGY Basophils # 0.0 0.0 - 0.2 04/08/2013 Normal [facility] IMMUNOLOGY CDC-HIV 1/2 Ab Negat allison *NA* (04/08/2013 14:19:00) Negati ve 04/08/2013 [facility] URINALYSIS UA Turbidity Clear (04/08/2013 14:19:00) Clear 04/08/2013 Normal [facility] URINALYSIS UA pH 6.0 5.0 - 8.0 04/08/2013 Normal [facility] URINALYSIS UA Spec Grav 1.041 <=1.030 04/08/2013 HI [facility] URINALYSIS UA Protein 30 mg/dL Negative 04/08/2013 ABN [facility] URINALYSIS UA Bili Moder ate *ABN* (04/08/2013 14:19:00) Negati ve 04/08/2013 ABN [facility] URINALYSIS UA Blood Negat allison (04/08/2013 14:19:00) Negati ve 04/08/2013 Normal [facility] URINALYSIS UA Glucose 500 mg/dL Negative 04/08/2013 ABN [facility] URINALYSIS UA Ketones Trace mg/dL Negative 04/08/2013 ABN [facility] URINALYSIS UA WBC 1 0 - 5 04/08/2013 Normal [facility] URINALYSIS UA RBC 1 0 - 2 04/08/2013 Normal [facility] URINALYSIS UA Nitrite Negat allison (04/08/2013 14:19:00) Negati ve 04/08/2013 Normal [facility] URINALYSIS UA Urobilinogen 4.0 0.1 - 1.0 04/08/2013 HI [facility] URINALYSIS UA Leuk Est Negat allison (04/08/2013 14:19:00) Negati ve 04/08/2013 Normal [facility] URINALYSIS UA Color Nerissa 04/08/2013 [facility] URINALYSIS UA Sq Epi None Seen 04/08/2013 [facility] CHEMISTRY Troponin-I <0.02 0.00 - 0.40 01/10/2013 Normal [facility] CHEMISTRY A/G Ratio 0.9 0.7 - 1.6 01/10/2013 Normal [facility] CHEMISTRY B/C Ratio 14 6 - 25 01/10/2013 Normal [facility] CHEMISTRY Globulin 4.1 2.0 - 4.0 01/10/2013 HI [facility] CHEMISTRY AGAP 12.9 10.0 - 20.0 01/10/2013 Normal [facility] CHEMISTRY eGFR 106 01/10/2013 NA <sup>1</sup>Result [...] should be multiplied by the estimated BMI. [facility] CHEMISTRY Total Protein 7.9 6.4 - 8.4 01/10/2013 Normal [facility] CHEMISTRY Albumin Lvl 3.8 3.5 - 5.0 01/10/2013 Normal [facility] CHEMISTRY Calcium Lvl 9.2 8.5 - 10.5 01/10/2013 Normal [facility] CHEMISTRY Creatinine Lvl 0.7 0.5 - 1.4 01/10/2013 Normal [facility] CHEMISTRY CO2 30 24 - 32 01/10/2013 Normal [facility] CHEMISTRY Bili Total 0.8 0.2 - 1.3 01/10/2013 Normal [facility] CHEMISTRY AST 45 0 - 37 01/10/2013 [facility] CHEMISTRY ALT 73 0 - 65 01/10/2013 [facility] CHEMISTRY Alk Phos 133 39 - 136 01/10/2013 Normal [facility] CHEMISTRY Glucose Lvl 200 70 - 99 01/10/2013 [facility] <sup>2</sup>Interpretive Data: Adult ref erence range values reflect the clinical guidelines
of the [place] [employer]. [facility] CHEMISTRY BUN 10 7 - 22 01/10/2013 Normal [facility] CHEMISTRY Potassium Lvl 3.9 3.5 - 5.1 01/10/2013 Normal [facility] CHEMISTRY Chloride Lvl 100 95 - 109 01/10/2013 Normal [facility] CHEMISTRY Sodium Lvl 139 135 - 145 01/10/2013 Normal [facility] CHEMISTRY Lipase Lvl 107 73 - 393 01/10/2013 Normal [facility] HEMATOLOGY Eosinophils 1.3 0.0 - 4.0 01/10/2013 Normal [facility] HEMATOLOGY Segs-Bands # 7.1 1.5 - 8.1 01/10/2013 Normal [facility] HEMATOLOGY Basophils 0.5 0.0 - 1.0 01/10/2013 Normal [facility] HEMATOLOGY Lymphocytes # 1.1 1.0 - 5.5 01/10/2013 Normal [facility] HEMATOLOGY Monocytes # 1.0 0.0 - 0.8 01/10/2013 [facility] HEMATOLOGY Basophils # 0.1 0.0 - 0.2 01/10/2013 Normal [facility] HEMATOLOGY Eosinophils # 0.1 0.0 - 0.5 01/10/2013 Normal [facility] [facility] Monocytes 10.5 2.0 - 12.0 01/10/2013 [facility] HEMATOLOGY Lymphocytes 12.2 20.0 - 40.0 01/10/2013 LOW [facility] HEMATOLOGY Segs 75.5 45.0 - 75.0 01/10/2013 HI [facility] RDW 13.4 11.5 - 14.5 01/10/2013 Normal [facility] MCHC 33.5 32.0 - 36.0 01/10/2013 Normal [facility] MPV 7.9 7.4 - 10.4 01/10/2013 Normal [facility] Platelet 174 133 - 450 01/10/2013 Normal [facility] Hgb 15.6 14.0 - 18.0 01/10/2013 Normal [facility] WBC 9.4 3.7 - 10.4 01/10/2013 Normal [facility] RBC 5.05 4.70 - 6.10 01/10/2013 Normal [facility] MCH 30.9 27.0 - 31.0 01/10/2013 Normal [facility] MCV 92.4 80.0 - 94.0 01/10/2013 Normal [facility] Hct 46.7 42.0 - 54.0 01/10/2013 Normal [facility] Pathology Reports No Data Provided for [...] report for further discussion. SL: 16 04/10/2013 [facility] Gallbladder scan TRICIAA wo melba ([place]) [...] and discussed with his nurse. SL:13 04/09/2013 [facility] Chest/Abdomen/Pelvis w contrast CT CT scan [...] o r pelvis is noted. SL:12 04/08/2013 [facility] Abdomen RUQ US ADDENDUM: Addit ional [...] duct not visualized. 3. Hepatomegaly. SL:13 01/10/2013 [facility] Consultation Notes No Data Provided for This Section Discharge Summaries No Data Provided for This Section History and Physicals No Data Provided for This Section Vital Signs Vital Sign Value Date Comments Source Temperature Oral (F) 98.0 F 04/11/2013 [facility] Heart Rate 69 04/11/2013 [facility] Diastolic (mm Hg) 74 04/11/2013 [facility] Systolic (mm Hg) 124 04/11/2013 [facility] Respitory Rate 18 04/11/2013 [facility] Respitory Rate 14 04/11/2013 [facility] Temperature Oral (F) 98.5 F 04/11/2013 [facility] Heart Rate 60 04/11/2013 [facility] Systolic (mm Hg) 148 04/11/2013 [facility] Diastolic (mm Hg) 68 04/11/2013 [facility] Respitory Rate 16 04/11/2013 [facility] Heart Rate 63 04/11/2013 [facility] Temperature Oral (F) 98.0 F 04/11/2013 [facility] Diastolic (mm Hg) 78 04/11/2013 [facility] Systolic (mm Hg) 160 04/11/2013 [facility] Height 160.02 cm 04/09/2013 [facility] Weight 74.545 04/09/2013 [facility] Height 160.02 cm 04/08/2013 [facility] Weight 74.545 04/08/2013 [facility] Heart Rate 91 01/10/2013 [facility] Temperature Oral (F) 99.0 F 01/10/2013 [facility] Diastolic (mm Hg) 69 01/10/2013 [facility] Systolic (mm Hg) 141 01/10/2013 [facility] Respitory Rate 18 01/10/2013 [facility] Temperature Oral (F) 97.8 F 01/10/2013 [facility] Systolic (mm Hg) 164 01/10/2013 [facility] Diastolic (mm Hg) 80 01/10/2013 [facility] Heart Rate 82 01/10/2013 [facility] Respitory Rate 18 01/10/2013 [facility] Height 172.72 cm 01/10/2013 [facility] Weight 72.727 01/10/2013 [facility] Encounters Location Location Details Encounter Type Encounter Number Reason For Visit Attending Provider ADM Date DC Date Status Source [facility] Emergency [id number] ABDOMINAL PAIN JANNY GALEANA 01/10/2013 01/10/2013 Active [facility] Inpatient [id number] ELEVATED LIVER EN ZYMES, RIGHT RIB FRACTURE, ABDOMINAL P SANTANA TEQWIMUAH 04/08/2013 04/11/2013 Active [facility] [id number] 00 Zachary Wilson 09/25/2019 09/26/2019 HENRIK Campos Procedures Procedure Code Date Perfomer Comments Source Cholecystectomy [id number] HENRIK Campos,[facility] Assessment and Plan No Data Provided for This Section Plan of Care No Data Provided for This Section Social History Social History Date Source Social History TypeResponse 09/26/2019 MICHAEL Campos Family History No Data Provided for This Section Advance Directives No Data Provided for This Section Functional Status No Data Provided for This Section
[2019-10-08 15:13] LABS: BASOPHILS % 0.5 % (0.0-1.0); EOSINOPHILS # (AUTO) 0.1 (0.0-0.4); EOSINOPHILS % 1.8 % (0.0-6.0); LYMPHOCYTES # (AUTO) 1.8 (1.0-3.2); LYMPHOCYTES % 23.6 % (18.0-39.1); MEAN CORPUSCULAR HEMOGLOBIN 29.8 pg (28-32); MEAN CORPUSCULAR HGB CONC 34.1 g/dL (31-35); MEAN CORPUSCULAR VOLUME 87.5 fL (81-99); MONOCYTES # (AUTO) 0.5 (0.2-0.8); MONOCYTES % 6.1 % (4.4-11.3); NEUTROPHILS # (AUTO) 5.1 (2.1-6.9); NEUTROPHILS % 67.6 % (38.7-80.0); PLATELET COUNT 286 x10e3/uL (140-360); RED BLOOD COUNT 5.03 x10e6/uL (4.3-5.7); RED CELL DISTRIBUTION WIDTH 13.1 % (11.7-14.4)
[2019-10-08 15:32] LABS: ALANINE AMINOTRANSFERASE 11 IU/L (0-55); ALBUMIN 3.4 g/dL (3.5-5.0); ALBUMIN/GLOBULIN RATIO 0.9 (0.8-2.0); ALKALINE PHOSPHATASE 80 IU/L (40-150); ANION GAP 15.8 mmol/L (8-16); BLOOD UREA NITROGEN 11 mg/dL (7-26); BUN/CREATININE RATIO 18 (6-25); CALCIUM 9.6 mg/dL (8.4-10.2); CARBON DIOXIDE 30 mmol/L (22-29); CHLORIDE 99 mmol/L (98-107); CREATININE, SERUM 0.61 mg/dL (0.72-1.25); EST GLOMERULAR FILTRATION RATE > 60 ML/MIN (60-); GLUCOSE 172 mg/dL (74-118); POTASSIUM 3.8 mmol/L (3.5-5.1); SODIUM 141 mmol/L (136-145)
[2019-10-08] MEDS ORDERED: DEXTROSE 50% SYRINGE 50 ML IV PRN (16:00)
--- NOTE | 2019-10-08 16:32 | History and Physical ---
CHIEF COMPLAINT: Left hip pain. HISTORY OF PRESENT ILLNESS: This is a 64-year-old man, who presents to [facility] Emergency Room with 2 weeks' history of left hip pain. The patient states that on September 25, 2019, suffered mechanical fall and since then he has had significant amount of left hip pain that prevents him from walking. He saw orthopedic surgeon this morning, Dr. Clement Stone, who diagnosed left femoral neck fracture. The patient was sent to emergency room for further evaluation and treatment. In the emergency room, the patient's complete blood count and blood chemistries are unremarkable. Chest x-ray was unremarkable. Prior to this fall, he was ambulating with cane. REVIEW OF SYSTEMS: GENERAL: The patient states he has lost weight in the last year. He cannot quantify. No fever, chills. HEENT: No headaches. No vision changes. CARDIOVASCULAR/RESPIRATORY: No chest pain. No short of breath or cough GI: No nausea, vomiting, or constipation. : No dysuria, hematuria, incontinence. NEUROMUSCULAR: Complains of left hip pain. He does not walk since he fell two weeks ago. ALLERGIES: NO KNOWN DRUG ALLERGIES. HOME MEDICATIONS: 1. Metformin 1000 mg b.i.d. 2. Thyroid medication once daily. FAMILY HISTORY: His mother had diabetes mellitus. All his siblings have . SOCIAL HISTORY: He is and he lives with his . He is disabled since a stroke in 2013. He still smokes tobacco. He denies any alcohol use. PAST SURGICAL HISTORY: Cholecystectomy. PAST MEDICAL HISTORY: 1. Type 2 diabetes mellitus. 2. 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 PHYSICAL EXAMINATION: GENERAL: He is awake, alert and somewhat oriented. He is predominantly Danish speaking and becomes confused easily. He is pleasant and cooperative with exam. VITAL SIGNS: Height 5 feet 3 inches, weight 150 pounds, blood pressure is 114/62, pulse 78, respiratory rate 16, oxygen saturation 100% on room air, temperature 98.1. INTEGUMENT: Skin is warm and dry. No pallor, jaundice, or diaphoresis. HEENT: Anicteric sclerae. Moist mucous membranes. NECK: Supple. CARDIOVASCULAR: Distant heart sounds. Regular rate and rhythm. LUNGS: No rales, no rhonchi. ABDOMEN: Benign. EXTREMITIES: Does have left hip tenderness with palpation. The patient's left lower extremity is shorter than the right. NEUROLOGICAL: He does have mild left-sided hemiparesis. Prior to fall he was ambulating with cane. DIAGNOSIS: 1. Left femoral neck fracture. 2. Type 2 diabetes mellitus. 3. Cerebrovascular disease (CVA in 2013) with residual left hemiparesis. 4. Tobacco abuse. PLAN: 1. Consult Cardiology for surgical clearance. 2. Order echocardiogram and electrocardiogram. 3. Blood glucose monitoring control. 4. Blood pressure monitoring control. 5. Pain control. 6. Consult orthopedics for left femoral neck fracture repair. 7. I discussed the risks and benefits of proceeding with surgical repair of this fracture with daughter. 8. I also discussed the risks of not surgically repairing this femoral neck fracture such as prolonged immobilization and risk of thromboembolism. 9. Enoxaparin for thromboembolism prophylaxis. TIME SPENT: I spent 45 minutes in the care of this patient. MD SWETA Reina/ARA /[id number] MTDD
[2019-10-08] MEDS ORDERED: ENOXAPARIN SOD INJ 40 MG/0.4 ML SYR SC SCH (17:00)
[2019-10-08] MEDS: INSULIN LISPRO 100 UNIT/1 ML 3ML VIAL SQ SCH ×2 (17:40→21:00)
[2019-10-08 18:01] VITALS: BP 131/62
--- NOTE | 2019-10-08 18:10 | NUR ---
ARRIVED VIA STRETCHER FROM ER, AA&O X3 AT THIS TIME, ORIENTED TO ROOM AND CALL LIGHT SYSTEM, CALL LIGHT WITHIN REACH
--- NOTE | 2019-10-08 19:20 | NUR ---
RECEIVED REPORT FROM PREVIOUS NURSE. CALL LIGHT WITHIN REACH. PATIENT IN BED.
[2019-10-08 19:35] VITALS: BP 131/62
[2019-10-08 19:40] VITALS: BP 131/62
[2019-10-08 20:00] VITALS: BP 123/68
[2019-10-08] MEDS: ENOXAPARIN SOD INJ 40 MG/0.4 ML SYR SC SCH (21:00)
[2019-10-08 21:27] VITALS: BP 123/68
[2019-10-09] VITALS (8 sets, daily range): BP systolic 116–132; BP diastolic 56–69
[2019-10-09] MEDS: MORPHINE SULFATE INJ 4 MG/ML INJ 1ML IV PRN ×5 (03:47→19:55)
[2019-10-09] MEDS: ONDANSETRON HCL INJ 2MG/ML 2ML 2 MG/ML VIAL IV PRN ×2 (03:47→19:55)
--- NOTE | 2019-10-09 05:10 | NUR ---
PATIENT KEEPS COMPLAINING OF LEFT HIP PAIN. PATIENT REFUSES TO TURN TO HIS RIGHT SIDE AND ASKS TO BE TURNED TO HIS LEFT. WAS EDUCATED ON WHY HE SHOULD NOT BE ON HIS LEFT SIDE BUT STILL REFUSES TO BE IN ANY OTHER POSITION EXCEPT HIS LEFT SIDE.
[2019-10-09 06:21] LABS: BASOPHILS # (AUTO) 0.1 (0.0-0.1); BASOPHILS % 0.8 % (0.0-1.0); EOSINOPHILS # (AUTO) 0.1 (0.0-0.4); EOSINOPHILS % 2.2 % (0.0-6.0); HEMATOCRIT 43.4 % (38.2-49.6); HEMOGLOBIN 15.1 g/dL (14.0-18.0); LYMPHOCYTES # (AUTO) 1.8 (1.0-3.2); LYMPHOCYTES % 28.7 % (18.0-39.1); MEAN CORPUSCULAR HEMOGLOBIN 30.2 pg (28-32); MEAN CORPUSCULAR HGB CONC 34.8 g/dL (31-35); MEAN CORPUSCULAR VOLUME 86.8 fL (81-99); MONOCYTES # (AUTO) 0.5 (0.2-0.8); MONOCYTES % 8.1 % (4.4-11.3); NEUTROPHILS # (AUTO) 3.9 (2.1-6.9); NEUTROPHILS % 59.9 % (38.7-80.0); PLATELET COUNT 256 x10e3/uL (140-360); RED CELL DISTRIBUTION WIDTH 13.1 % (11.7-14.4)
[2019-10-09 06:49] LABS: CHOL/HDL RATIO 3.9 (3.9-4.7)
[2019-10-09 07:11] LABS: THYROID STIMULATING HORMONE 8.444 uIU/mL (0.350-4.940)
--- NOTE | 2019-10-09 07:24 | NUR ---
GAVE BEDSIDE SHIFT REPORT TO ONCOMING NURSE. CALL LIGHT WITHIN REACH. PATIENT IN BED.
[2019-10-09] MEDS: INSULIN LISPRO 100 UNIT/1 ML 3ML VIAL SQ SCH ×4 (07:30→21:51)
[2019-10-09] MEDS: METFORMIN HCL 500 MG TAB PO SCH ×2 (09:17→16:43)
--- NOTE | 2019-10-09 10:19 | Progress Note ---
DATE: 10/09/2019 CHIEF COMPLAINT/HISTORY OF PRESENT ILLNESS: This is a 64-year-old man, whose primary treating diagnosis is displaced left femoral neck fracture. This gentleman has an underlying history of an old stroke with residual left hemiparesis. The patient states that his pain in the left hip is well controlled. Blood work today was unremarkable except TSH level was 8.444. The patient's BUN and creatinine today is 11 and 0.61 respectively. REVIEW OF SYSTEMS: As per HPI. PHYSICAL EXAMINATION: GENERAL: He is awake and alert. He is oriented to self, but not time or place. He gets confused easily. He is predominantly Guinean speaking. He is very pleasant and cooperative to exam. He does not appear to be in any obvious distress. VITAL SIGNS: Height 5 feet 3 inches, weight is 135 pounds, BMI is 24, blood pressure 132/56, pulse 70, respiratory rate 18, oxygen saturation 99% on room air, and temperature 98.3. INTEGUMENT: Skin is warm and dry. No pallor, jaundice, or diaphoresis. HEENT: Anterior sclerae moist mucous membranes. NECK: Supple. CARDIOVASCULAR: Regular rate and rhythm and S4 gallop. LUNGS: No rales. No rhonchi. ABDOMEN: Benign. EXTREMITIES: The left lower extremity is shorter than the right. NEUROLOGIC: He has left-sided hemiparesis from old stroke. DIAGNOSES: 1. Left femoral neck fracture secondary to mechanical fall on September 25, 2019. 2. Type 2 diabetes mellitus. 3. Cerebrovascular disease (CVA in 2013, with residual left hemiparesis). 4. Hypothyroidism. PLAN: 1. Start Synthroid 50 mcg daily for hypothyroidism. 2. Pain control. 3. Keep the patient on telemetry at this time. 4. We will review the final echocardiogram report. 5. Await Cardiology's surgical clearance. 6. Tentative left hip surgery tomorrow. 7. I appreciate Orthopedics input. 8. Blood glucose monitoring control. I spent 30 minutes in the care of this patient. MD SWETA Reina/ARA /[id number] CARISA
[2019-10-09] MEDS: LEVOTHYROXINE SODIUM 50 MCG TAB PO SCH (11:47)
--- NOTE | 2019-10-09 11:50 | NUR ---
MOHSEN SPOKE WITH PT AND IN ROOM REGARDING DC PLANS EXPLAINED TO THEM THAT TYPICALLY DR PÉREZ WILL ORDER A SNF EVAL FOR HIS PT'S POST OP GAVE PT'S A LIST OF SNF'S COVERED BY [facility] ALONG WITH MY BUSINESS CARD SHE STATES SHE WILL TOUR FACILITIES WITH HER DAUGHTER AND CALL ME BACK WITH THEIR DECISION
[2019-10-09] MEDS ORDERED: CEFAZOLIN SOD 1 GM/NS 50ML 100 ML IV NR (13:30)
[2019-10-09] MEDS: ENOXAPARIN SOD INJ 40 MG/0.4 ML SYR SC SCH (16:43)
--- NOTE | 2019-10-09 16:55 | Consultation ---
DATE OF CONSULTATION: 10/09/2019 Cardiology Consult Note REASON FOR CONSULT: Preoperative cardiovascular assessment. CHIEF COMPLAINT: Left hip pain. HISTORY OF PRESENT ILLNESS: The patient is a 64-year-old man with history of CVA and left hemiparesis, who fell on 10/10/2019, has been having worsening left hip pain, was brought in by the daughter, has a fractured left hip to undergo surgery on 10/10/2019. We were consulted for preoperative cardiovascular assessment given his risk factors. The patient is a long-time smoker and diabetic. Denies any ongoing chest pain, shortness of breath, or CHF symptoms. He has no history of cardiovascular issues. No history of MT, stent, or bypass surgery. Does not exert himself very much due to left hemiparesis. PAST MEDICAL HISTORY: As described in the HPI. SOCIAL HISTORY: The patient smokes. Does not drink or abuse drugs. FAMILY HISTORY: Noncontributory. OUTPATIENT MEDICATIONS: Reviewed. ALLERGIES: NO KNOWN DRUG ALLERGIES. REVIEW OF SYSTEMS: As per HPI, otherwise negative. OBJECTIVE: VITAL SIGNS: Temperature afebrile, pulse 70, respiratory rate 20, blood pressure 132/56, saturating 99% on room air. GENERAL: A 64-year-old man, no acute distress. CARDIOVASCULAR: Regular rate and rhythm. No murmurs, rubs, or gallops. LUNGS: Clear to auscultation anteriorly. ABDOMEN: Soft, nontender, nondistended. NEURO AND PSYCH: Alert and oriented to person, place, and time. Normal affect. Left hemiparesis. INPATIENT MEDICATIONS: Reviewed. LABORATORY DATA: Reviewed. IMAGING DATA: Reviewed. Chest x-ray shows no acute abnormality. Echocardiogram was reviewed, shows normal LV ejection fraction. No severe valvular abnormalities. ASSESSMENT AND PLAN: 1. Preoperative cardiovascular evaluation. 2. Left hip fracture. 3. Diabetes. 4. Left lower extremity swelling. PLAN: The patient has no acute ischemia on his EKG. He is in normal sinus rhythm. No cardiovascular symptoms. Echocardiogram showed normal LV ejection fraction. No previous history of CAD. Based on these findings, the patient will be considered low risk for perioperative cardiovascular events for low risk orthopedic surgery. Okay to proceed with surgery without any further cardiovascular workup. Thank you for this consult. We will continue to follow. MD CHRISTIANA Powell/VLADIMIRL /[id number]
--- NOTE | 2019-10-09 19:05 | NUR ---
RECEIVED REPORT FROM PREVIOUS NURSE. PATIENT IN BED. CALL LIGHT WITHIN REACH.
[2019-10-10] VITALS (7 sets, daily range): BP systolic 109–140; BP diastolic 57–82
[2019-10-10] MEDS: ONDANSETRON HCL INJ 2MG/ML 2ML 2 MG/ML VIAL IV PRN ×2 (00:01→05:38)
[2019-10-10] MEDS: MORPHINE SULFATE INJ 4 MG/ML INJ 1ML IV PRN ×2 (00:01→05:38)
[2019-10-10] MEDS: SODIUM CHLORIDE 0.9% 1000ML 1,000 ML IV SCH ×5 (00:13→21:45)
--- NOTE | 2019-10-10 03:14 | NUR ---
THE PAST TWO NIGHTS THE PATIENT REFUSED TO TURN TO HIS RIGHT SIDE. HE KEEPS PRESSING THE CALL SAUER MORE THAN AN HOUR BEFORE THE PAIN MEDICATION IS DUE AND HE WAS TOLD MANY TIMES WHEN HE GETS THE NEXT DOSE AND IT IS ALWAYS WRITTEN ON THE WHITE BOARD. AT 0230, WE WENT INTO THE ROOM TO BATHE THE PATIENT AND HE IS ON THE PHONE WITH HIS DAUGHTER COMPLAINING WE ARE NOT GIVING HIM THE PAIN MEDICATION. HIS DAUGHTER WAS CONCERNED BECAUSE HE CALLED HER SAYING HE DID NOT KNOW WHERE HE IS AND WAS ACTING CONFUSED. THE DAUGHTER THOUGHT HE WAS HAVING A STROKE. I DID A STROKE ASSESSMENT AND THE PATIENT HAD NO SIGNS OF A STOKE. WE REASSURED THE DAUGHTER ABOUT EVERYTHING THAT IS GOING ON. WE TOLD HER HE IS NOT HAVING A STOKE AND WE ARE GIVING HIM THE PAIN MEDICATION EVERY 4 HOURS SCHEDULED AND HE CAN NOT HAVE IT EARLIER. WE ALSO TOLD THE DAUGHTER HE IS ACTING THE SAME WAY HE WAS THE NIGHT BEFORE AND HAS NOT BEEN SLEEPING WELL THE PAST TWO NIGHTS. I GAVE HER THE NUMBER TO THE NURSES STATION AND TOLD HER SHE CAN CALL US IF SHE NEEDS.
[2019-10-10] MEDS: LEVOTHYROXINE SODIUM 50 MCG TAB PO SCH (06:00)
[2019-10-10] MEDS ORDERED: BACITRACIN 50,000 UNIT VIAL ONE (06:47)
--- NOTE | 2019-10-10 07:15 | NUR ---
GAVE BEDSIDE SHIFT REPORT TO ONCOMING NURSE. CALL LIGHT WITHIN REACH. PATIENT IN BED.
[2019-10-10] MEDS: METFORMIN HCL 500 MG TAB PO SCH ×2 (07:29→17:54)
[2019-10-10] MEDS: INSULIN LISPRO 100 UNIT/1 ML 3ML VIAL SQ SCH ×3 (07:29→18:06)
--- NOTE | 2019-10-10 08:58 | Progress Note ---
DATE: 10/10/2019 CHIEF COMPLAINT/HISTORY OF PRESENT ILLNESS: This is a 64-year-old man, whose primary diagnosis is left femoral neck fracture. The patient is scheduled for left hip surgery today. The patient voices no complaints. The patient had blood work done yesterday on October 09, 2019 and was found to have LDL cholesterol of 84 mg/dL. TSH level was 8.444. REVIEW OF SYSTEMS: As per HPI. PHYSICAL EXAMINATION: GENERAL: He is awake, alert. He speaks predominantly Kiswahili. He does not appear to be in any obvious distress. He is currently in the preoperative area. VITAL SIGNS: BMI is 24. Height 5 feet 3 inches, weight 135 lbs, pulse 80, respiratory rate 18, temperature 96.7, and oxygen saturation 99% on room air. INTEGUMENT: Skin is warm and dry. No pallor. No jaundice or diaphoresis. HEENT: Anicteric sclerae. Moist mucous membranes. NECK: Supple. CARDIOVASCULAR: Regular rate and rhythm and S4 gallop. LUNGS: No rales, no rhonchi, no wheezes. ABDOMEN: Benign. EXTREMITIES: Left lower extremity is shorter than the right knee. NEUROLOGIC: He has left hemiparesis from old stroke. DIAGNOSES: 1. Left femoral neck fracture. 2. Cerebrovascular disease (old stroke with left hemiparesis). 3. Hypothyroidism. 4. Type 2 diabetes mellitus. 5. Mild cognitive impairment secondary to old stroke. PLAN: 1. Tentative left hip surgery today. 2. I will like to thank Cardiology for helping us clear this patient medically for left hip surgery. 3. Blood glucose control. 4. Pain control. 5. We will check hemoglobin and hematocrit tomorrow morning. I spent 25 minutes in the care of this patient. MD SWETA Reina/ARA /[id number] CARISA
--- NOTE | 2019-10-10 10:24 | Diagnostic Imaging Report ---
X-ray AP pelvis Indication: Preop Comparison: None. Findings: Suboptimal AP pelvis exam with significant rotation of the patient. There is trabecular architecture distortion irregularity and shortening of the left femoral neck. This suggests the presence of a left femoral neck fracture possibly with impaction. Degenerative changes of the right hip. No other acute bony or soft tissue changes. Impression: Suboptimal exam. Likely left femoral neck fracture as described above. Signed by: Juancarlos Mart MD on 10/10/2019 10:21 AM
--- NOTE | 2019-10-10 10:49 | Diagnostic Imaging Report ---
ADDENDUM #1 I'm informed by the OR that the left hip implant is a pre arthroplasty trial implant and does not represent total hip arthroplasty. Signed by: Juancarlos Mart MD on 10/10/2019 11:33 AM ORIGINAL REPORT X-ray AP pelvis portable Comparison: 10/10/2019 History: Post ORIF Findings: The patient is status post left hip total arthroplasty. The components of the implant are in near-anatomic alignment. Impression: Status post left hip total arthroplasty. Signed by: Juancarlos Mart MD on 10/10/2019 10:46 AM
[2019-10-10] MEDS ORDERED: HYDROMORPHONE 0.2MG/ML-SOD CHL 30ML PCA SYRINGE IV PRN (11:15)
[2019-10-10] MEDS ORDERED: NALOXONE HCL INJ 0.4 MG/ML AMP IV PRN (11:15)
[2019-10-10] MEDS ORDERED: ONDANSETRON HCL INJ 2MG/ML 2ML 2 MG/ML VIAL IV PRN (11:15)
--- NOTE | 2019-10-10 12:00 | NUR ---
Received phone call from pt's Keira Cuellar [phone]. Gave choice for [facility]. Pt current in OR for surgery. Will place choice letter in front of chart and send referral when pt returns from surgery.
[2019-10-10] MEDS ORDERED: HYDROMORPHONE 0.2MG/ML-SOD CHL 30ML PCA SYRINGE IV ONE (12:32)
--- NOTE | 2019-10-10 13:12 | Diagnostic Imaging Report ---
X-ray left hip 2 views portable History: Status post left hip arthroplasty with orthopedic hardware in near anatomic alignment. Surgical breana. Soft tissue air from the recent surgery. Impression: Status post left hip portal arthroplasty. Signed by: Juancarlos Mart MD on 10/10/2019 1:08 PM
--- NOTE | 2019-10-10 14:27 | NUR ---
Referral for SNF faxed to [facility] at [phone]. NOEL Reed with [facility] was notified of referral.
[2019-10-10] MEDS: CEFAZOLIN SOD 1 GM/NS 50ML 50 ML IV SCH (17:54)
[2019-10-10] MEDS: RIVAROXABAN 10 MG TABLET PO SCH (17:58)
[2019-10-10] MEDS ORDERED: ETOMIDATE 2 MG/ML 10 ML INJ IV ONE (18:18)
[2019-10-10] MEDS ORDERED: ONDANSETRON HCL INJ 2MG/ML 2ML 2 MG/ML VIAL ONE (18:18)
[2019-10-10] MEDS ORDERED: SEVOFLURANE INHAL SOLN 250 ML PEN BTL ONE (18:18)
[2019-10-10] MEDS ORDERED: NEOSTIGMINE 1 MG/ML 10ML VIAL ONE (18:18)
[2019-10-10] MEDS ORDERED: DEXAMETHASONE SOD PHOS INJ 4 MG/ML VIAL ONE (18:18)
[2019-10-10] MEDS ORDERED: ACETAMINOPHEN 1000 MG/100 ML IV ONE (18:18)
[2019-10-10] MEDS ORDERED: GLYCOPYRROLATE INJ 0.2 MG/ML VIAL ONE (18:18)
[2019-10-10] MEDS ORDERED: LABETALOL HCL 5 MG/ML 20ML VIAL ONE (18:18)
[2019-10-10] MEDS ORDERED: LIDOCAINE HCL 2% LOCAL INJ 5 ML SDV VIAL INJ ONE (18:18)
[2019-10-10] MEDS ORDERED: EPHEDRINE SULFATE INJ 50 MG/ML VIAL ONE (18:18)
[2019-10-10] MEDS ORDERED: CEFAZOLIN SOD 1 GM VIAL ONE (18:18)
[2019-10-10] MEDS ORDERED: MORPHINE SULFATE INJ 10 MG/ML ONE (18:43)
[2019-10-10] MEDS ORDERED: FENTANYL CITRATE/PF 100MCG/2 ML INJ ONE (18:43)
--- NOTE | 2019-10-10 20:00 | NUR ---
LATE ENTRY--RECEIVED REPORT FROM 7AM NURSE, PATIENT RESTING IN BED WITH ABDUCTIVE PILLOW INTACT, DRESSING REMAIN INTACT TO HIS LEFT HIP AREA, NO DRAINAGE NOTED. FIRE PREVENTION FORESTER PUMP IN PROGRESS, IVF INFUSING. INSTRUCTED TO USE THE FIRE PREVENTION FORESTER PUMP BUTTON FOR PAIN. CALL LIGHT IN REACH. WILL CONTINUE TO MONITOR.
[2019-10-10] MEDS: ACETAMINOPHEN 1000 MG/100 ML IV PRN (20:35)
[2019-10-11] VITALS (7 sets, daily range): BP systolic 126–163; BP diastolic 55–108
--- NOTE | 2019-10-11 | NUR ---
LATE ENTRY--PATIENT CONTINUE RESTING IN BED, PATIENT HAS CALLED SEVERAL TIMES AND COMPLAIN THAT THE ACCESS LIAISON PUMP IS NOT WORKING, HE WAS ABLE TO CALL HIS DAUGHTER EARLIER AND I INFORMED HER THAT HES' RECEIVING HIS PAIN MEDICATION ORDERED, INFORMED HER THAT WE'VE INSTRUCTED HIM TO PRESS THE BUTTON AND HE'S DOING SO. INFORMED DAUGHTER THAT HE BENDS HIS ARM FREQUENTLY WHICH STOPS THE FLOW OF MEDICATION AND THAT I'VE GONE IN SEVERAL TIMES TO RESTART THE MACHINE AND ASKED HIM TO STRAIGHTEN HIS ARM OUT. NO FURTHER ISSUES VOICED. IV BOARD APPLIED TO PATIENTS IV SITE.
--- NOTE | 2019-10-11 01:00 | NUR ---
LATE ENTRY--WENT INTO THE PATIENTS ROOM BECAUSE THE IV WAS BEEPING AND NOTICED HIS ARM BEND AND THE ARM BOARD POSITIONED LOWER THAN WHERE IT WAS PLACED. INFORMED PATIENT THAT HE SHOULD LEAVE IT WHERE IT'S AT TO RECEIVE HIS MEDICATION. CALL LIGHT IN REACH. WILL CONTINUE TO MONITOR.
[2019-10-11] MEDS: CEFAZOLIN SOD 1 GM/NS 50ML 50 ML IV SCH ×2 (01:59→08:11)
[2019-10-11] MEDS: SODIUM CHLORIDE 0.9% 1000ML 1,000 ML IV SCH ×2 (05:26→08:13)
[2019-10-11] MEDS: LEVOTHYROXINE SODIUM 50 MCG TAB PO SCH (05:26)
[2019-10-11 06:37] LABS: BASOPHILS % 0.4 % (0.0-1.0); EOSINOPHILS # (AUTO) 0.1 (0.0-0.4); EOSINOPHILS % 1.3 % (0.0-6.0); HEMATOCRIT 38.4 % (38.2-49.6); LYMPHOCYTES # (AUTO) 1.8 (1.0-3.2); LYMPHOCYTES % 22.2 % (18.0-39.1); MEAN CORPUSCULAR HEMOGLOBIN 30.1 pg (28-32); MEAN CORPUSCULAR HGB CONC 33.9 g/dL (31-35); MEAN CORPUSCULAR VOLUME 88.9 fL (81-99); MONOCYTES # (AUTO) 0.8 (0.2-0.8); MONOCYTES % 10.1 % (4.4-11.3); NEUTROPHILS # (AUTO) 5.4 (2.1-6.9); NEUTROPHILS % 65.6 % (38.7-80.0); PLATELET COUNT 241 x10e3/uL (140-360); RED BLOOD COUNT 4.32 x10e6/uL (4.3-5.7); RED CELL DISTRIBUTION WIDTH 12.7 % (11.7-14.4)
--- NOTE | 2019-10-11 07:00 | NUR ---
LATE ENTRY--REPORT GIVEN TO AM NURSE. NO DISTRESS NOTED. CALL LIGHT REMAIN IN REACH.
[2019-10-11 07:09] LABS: ANION GAP 13.4 mmol/L (8-16); BLOOD UREA NITROGEN 6 mg/dL (7-26); BUN/CREATININE RATIO 11 (6-25); CALCIUM 8.9 mg/dL (8.4-10.2); CARBON DIOXIDE 26 mmol/L (22-29); CHLORIDE 102 mmol/L (98-107); CREATININE, SERUM 0.54 mg/dL (0.72-1.25); EST GLOMERULAR FILTRATION RATE > 60 ML/MIN (60-); GLUCOSE 112 mg/dL (74-118); POTASSIUM 3.4 mmol/L (3.5-5.1); SODIUM 138 mmol/L (136-145)
[2019-10-11] MEDS: INSULIN LISPRO 100 UNIT/1 ML 3ML VIAL SQ SCH ×4 (07:30→16:30)
[2019-10-11] MEDS: METFORMIN HCL 500 MG TAB PO SCH ×2 (08:11→17:14)
[2019-10-11] MEDS ORDERED: ONDANSETRON HCL 4 MG ORAL DISINTEGRATING TAB PO PRN (08:30)
[2019-10-11] MEDS ORDERED: HYDROCODONE/APAP 10MG-325MG TAB PO STA (08:44)
--- NOTE | 2019-10-11 08:46 | NUR ---
PT note faxed to [facility]. Informed JJ with facility that Dr. Hernandez wants pt assigned to Dr. Wood if approved.
--- NOTE | 2019-10-11 09:37 | Progress Note ---
DATE: 10/11/2019 CHIEF COMPLAINT/HISTORY OF PRESENT ILLNESS: This is a 64-year-old man, whose primary treating diagnosis was left femoral neck fracture. Yesterday, the patient underwent successful left hemiarthroplasty, underwent successful left hip hemiarthroplasty performed by Dr. Travis Justice. The patient tolerated the surgery well. The patient states he is experiencing significant amount of left hip pain at this time. The patient's IV Dilaudid IV via EXPERIENCE DESIGNER pump was not helpful. Blood work today was unremarkable except potassium was 3.4. The patient's hemoglobin was 13 g/dL. The patient underwent echocardiogram on October 09, 2019, which revealed a preserved left ventricular ejection fraction of 72%, but it did reveal impaired relaxation consistent with diastolic heart failure. REVIEW OF SYSTEMS: As per HPI. PHYSICAL EXAMINATION: GENERAL: He is awake, alert. He is in obvious distress. He is very pleasant and cooperative with exam. VITAL SIGNS: Height 5 feet 3 inches, weight 135 pounds, BMI 24. Blood pressure is 160/70, pulse is 100, respiratory rate 22, oxygen saturation 96% on room air, and temperature 98.5. INTEGUMENT: Skin is warm and dry. No pallor, jaundice, or diaphoresis. HEENT: Anicteric sclerae. Moist mucous membranes. NECK: Supple. CARDIOVASCULAR: Tachycardic rate, regular rhythm. The patient has an S4 gallop. LUNGS: No rales. No rhonchi. No wheeze. ABDOMEN: Benign. EXTREMITIES: Surgical incision is currently dressed. NEUROLOGIC: He has left hemiparesis, but this is chronic. DIAGNOSES: 1. Status post left hip hemiarthroplasty. 2. Chronic diastolic congestive heart failure. 3. Cerebrovascular disease (old stroke with left hemiparesis). 4. Hypertensive heart disease. 5. Type 2 diabetes mellitus. 6. Hypothyroidism. 7. Hypokalemia. PLAN: 1. Replete potassium level. 2. Stop intravenous fluids. 3. Intravenous Dilaudid. 4. Stop EXPERIENCE DESIGNER pump. 5. Order oral hydrocodone in the form of [place] 10/325 one pill every 4 hours p.r.n. pain. 6. Mobilize physical therapy. 7. Monitor blood pressure. 8. Blood glucose control with oral metformin and Humalog sliding scale. 9. Recommend the patient to use incentive spirometer to prevent atelectasis. 10. We will continue Xarelto 10 mg daily for a total 21 days to prevent deep venous thrombosis. 11. We will proceed with [facility] facility placement. I spent 40 minutes in the care of this patient. MD SWETA Reina/ARA /[id number] CARISA
[2019-10-11] MEDS: HYDROCODONE/APAP 10MG-325MG TAB PO PRN ×3 (09:38→19:42)
[2019-10-11] MEDS ORDERED: HYDROCODONE/APAP 10MG-325MG TAB PO ONE (09:50)
[2019-10-11] MEDS ORDERED: POTASSIUM CHLORIDE 10MEQ EA PO ONE (09:50)
[2019-10-11] MEDS: ACETAMINOPHEN 1000 MG/100 ML IV PRN (12:00)
--- NOTE | 2019-10-11 12:04 | NUR ---
[facility] FACILITY DISCHARGE INFORMATION PATIENT HAS BEEN ACCEPTED TO: [facility] [address] [place] [address] ACCEPTING GLOBAL LOGISTICS MANAGER: Quinton Fair ACCEPTING MD: Dr. Wood ROOM: 109 NURSE CALL REPORT TO: [phone] IMM SIGNED AND OBTAINED (if applicable): yes, discussed with . She verbalized understanding. Signed copy in chart. Copy given to . THE FOLLOWING DOCUMENTS MUST ACCOMPANY PATIENT FOR TRANSFER: copy of chart, prescriptions, transfer MAR COPIED CHART: Ariane, gunite nozzle operator RTF: completed and placed with pt's packet at nurse's station [id number] DNR: n/a [facility] was informed of bed. COVID form and PASSR faxed to facility. placed copy in chart and packet.
--- NOTE | 2019-10-11 14:43 | NUR ---
Dictated DC summary: [id number]
[2019-10-11] MEDS ORDERED: NORCO 10-325 T1 EACH PO (14:54)
[2019-10-11] MEDS ORDERED: XARELTO10 MG (14:55)
[2019-10-11] MEDS ORDERED: SYNTHROID50 MCG PO (14:55)
[2019-10-11] MEDS ORDERED: HUMALOG100 UNIT/1 ×2 (14:58→15:01)
--- NOTE | 2019-10-11 15:38 | Discharge Summary ---
ADMIT DIAGNOSES: 1. Left femoral neck fracture. 2. Type 2 diabetes. 3. Cerebrovascular disease (CVA in 2014 with residual left hemiparesis). 4. Tobacco abuse. DISCHARGE DIAGNOSES: 1. Status post left hip hemiarthroplasty to repair femoral neck fracture. 2. Type 2 diabetes. 3. Hypertension. 4. Hypothyroidism. 5. Cerebrovascular disease (old CVA in 2014 with residual left hemiparesis). 6. Chronic diastolic congestive heart failure with preserved left ventricular ejection fraction. 7. Tobacco abuse. 8. Mild cognitive impairment secondary to cerebrovascular disease. HOSPITAL COURSE: This is a 64-year-old man, who was initially admitted to [facility] with a diagnosis of a left femoral neck fracture after sustaining mechanical fall on September 25, 2019. During this hospitalization, the patient was seen by his orthopedic surgeon namely Dr. Clement Stnoe, who performed successful left hip hemiarthroplasty. The patient did participate in physical therapy prior to being discharged. The patient's hospitalization was unremarkable. During this hospitalization, the patient underwent echocardiogram, which revealed a preserved left ventricular ejection fraction of 73%, but did reveal findings consistent with diastolic heart failure. The patient underwent venous Doppler ultrasound of left lower extremity during hospitalization, which was negative for deep venous thrombosis. The patient's hospitalization was unremarkable. The patient was found to have an elevated TSH level, thus he was started on levothyroxine, which he tolerated quite well. CONDITION ON DISCHARGE: Stable. DISCHARGE MEDICATIONS: 1. Xarelto 10 mg daily for 12 to 21 days. 2. Oden 10/325 one pill every 6 hours p.r.n. pain, 30 prescribed, no refills. 3. Metformin 1000 mg b.i.d. 4. Levothyroxine 50 mcg daily. 5. Humalog insulin sliding scale. FOLLOWUP INSTRUCTIONS: The patient to follow up with Dr. Clement Stone, his orthopedic surgeon in 2 weeks. The decision was made to transfer patient to a senior living facility where he can receive occupational and physical therapy namely the [facility] where he will be under the care of Dr.Steve Wood. MD SWETA Reina/ARA /[id number] CARISA
[2019-10-11] MEDS: RIVAROXABAN 10 MG TABLET PO SCH (17:14)
--- NOTE | 2019-10-11 19:42 | NUR ---
Received pt in bed awake/ oriented / alert. Patient pending d[facility]c to [facility]. Transportation present at this time for transfer. Spoke to spouse x 2 regarding discharge and pain medication prior to d/c. Pt med per jul.
--- NOTE | 2019-10-12 06:07 | NUR ---
LATE ENTRY--VITALS TAKEN. WILL CONTINUE TO MONITOR. LEATHER STAKER PUMP REMAIN IN USE, ABDUCTION PILLOW REMAIN IN POSITIONED. SCD AND PLEXIPULSES REMAIN IN PROGRESS. IV INFUSING, MEDICATED ORDERED. WENT IN SEVERAL TIMES THROUGHOUT THE NIGHT AND OBSERVED PATIENT SLEEPING. WILL CONTINUE TO MONITOR.
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
== END 2019-10-11 19:50 | DRG 470 ==
LOC: ER 13:41 → ERHOLD 13:50 → MED/SURG 18:10
PROVIDERS: ADMIT Internal Medicine; ATTEND Internal Medicine
PROC: 0SRS019 Replacement of Left Hip Joint, Femoral Surface with Metal Synthetic Substitute, Cemented, Open Approach (ICD-10-PCS; principal; 2019-10-10 08:30)
DX: S72.002A Fracture of unspecified part of neck of left femur, initial encounter for closed fracture (principal); I69.354 Hemiplegia and hemiparesis following cerebral infarction affecting left non-dominant side; I50.32 Chronic diastolic (congestive) heart failure; E11.9 Type 2 diabetes mellitus without complications; Z72.0 Tobacco use; Z83.3 Family history of diabetes mellitus; Z90.49 Acquired absence of other specified parts of digestive tract; Z79.84 Long term (current) use of oral hypoglycemic drugs; E03.9 Hypothyroidism, unspecified; I69.319 Unspecified symptoms and signs involving cognitive functions following cerebral infarction; I11.0 Hypertensive heart disease with heart failure; E87.6 Hypokalemia
CPT/HCPCS: 36415; 71046; 72170; 80048; 80053; 80061; 82948; 84443; 85025; 86850; 86900; 87635; 88305; 88311; 93005; 93306; 93971; 97139; 99284; C1713; C1776; J0690; J1100; J1650; J2001; J2270; J2405; J2710; J3010; J7030

== ENCOUNTER 2021-06-07 18:34 | Emergency (ER) | payer MEDICARE, OTHER ==
[~2021-06-07] VITALS: Ht 160 cm; Wt 61.2 kg
[~2021-06-07 18:34] MED LIST changes: +HUMALOG100 UNIT/1; +NORCO 10-325 T1 EACH PO; +SYNTHROID50 MCG PO; +XARELTO10 MG
[2021-06-07] MEDS ORDERED: KETOROLAC TROMETHAMINE 30 MG/ML VIAL IM STA (19:56)
[2021-06-07] MEDS ORDERED: HYDROCODONE/APAP 5MG-325MG TAB PO ONE (20:00)
[2021-06-07] MEDS ORDERED: HYDROCODONE/APAP 5MG-325MG TAB ONE (20:14)
[2021-06-07] MEDS ORDERED: KETOROLAC TROMETHAMINE 30 MG/ML VIAL ONE (20:14)
[2021-06-07] MEDS ORDERED: NAPROXEN250 MG PO (22:39)
== END 2021-06-07 23:30 | disposition home or self-care (01) ==
LOC: ER 19:51
DX: M25.552 Pain in left hip (principal); V00.811A Fall from moving wheelchair (powered), initial encounter; Y92.89 Other specified places as the place of occurrence of the external cause; I10 Essential (primary) hypertension; E11.9 Type 2 diabetes mellitus without complications; E78.5 Hyperlipidemia, unspecified; E03.9 Hypothyroidism, unspecified
CPT/HCPCS: 72192; 73502; 73562; 73700; 99284; J1885

== ENCOUNTER 2021-06-13 20:00 | Emergency (ER) | payer MEDICARE ==
[~2021-06-13] VITALS: Ht 160 cm; Wt 61.2 kg
[~2021-06-13 20:00] MED LIST changes: +NAPROXEN250 MG PO
[2021-06-13] MEDS ORDERED: SODIUM CHLORIDE 0.9% 1000ML 1,000 ML IV STA (20:16)
[2021-06-13] MEDS ORDERED: ONDANSETRON HCL INJ 2MG/ML 2ML 2 MG/ML VIAL IV STA (20:18)
[2021-06-13] MEDS ORDERED: ACETAMINOPHEN 1000 MG/100 ML IV STA (20:25)
[2021-06-13] MEDS ORDERED: ACETAMINOPHEN 325 MG TAB PO ONE (20:30)
[2021-06-13] MEDS ORDERED: ONDANSETRON HCL INJ 2MG/ML 2ML 2 MG/ML VIAL ONE (20:32)
[2021-06-13 20:38] LABS: BASOPHILS % 0.3 % (0.0-1.0); EOSINOPHILS % 0.1 % (0.0-6.0); HEMATOCRIT 46.8 % (38.2-49.6); LYMPHOCYTES # (AUTO) 0.8 (1.0-3.2); LYMPHOCYTES % 5.5 % (18.0-39.1); MEAN CORPUSCULAR HEMOGLOBIN 30.2 pg (28-32); MEAN CORPUSCULAR HGB CONC 34.2 g/dL (31-35); MEAN CORPUSCULAR VOLUME 88.3 fL (81-99); MONOCYTES # (AUTO) 1.2 (0.2-0.8); MONOCYTES % 7.8 % (4.4-11.3); NEUTROPHILS # (AUTO) 12.9 (2.1-6.9); NEUTROPHILS % 85.8 % (38.7-80.0); PLATELET COUNT 209 x10e3/uL (140-360); RED CELL DISTRIBUTION WIDTH 13.4 % (11.7-14.4)
[2021-06-13 21:01] LABS: ALBUMIN 3.9 g/dL (3.5-5.0); ANION GAP 18.7 mmol/L (8-16); CALCIUM 9.7 mg/dL (8.4-10.2); CLARITY,URINE CLEAR (CLEAR); COLOR,URINE YELLOW (YELLOW); CREATININE, SERUM 0.69 mg/dL (0.72-1.25); POTASSIUM 3.7 mmol/L (3.5-5.1)
[2021-06-13 21:02] LABS: KETONES,URINE NEGATIVE (NEGATIVE); LEUKOCYTE ESTERASE ,URINE NEGATIVE (NEGATIVE); NITRITE,URINE NEGATIVE (NEGATIVE); PROTEIN,URINE DIPSTICK 2+ (NEGATIVE); URINE UROBILINOGEN 0.2 mg/dL (0.2 - 1)
[2021-06-13 21:04] LABS: INR 1.08; PROTHROMBIN TIME 14.8 seconds (11.9-14.5)
[2021-06-13 21:07] LABS: CREATINE KINASE MB 0.7 ng/mL (0-5.0)
[2021-06-13 21:58] LABS: BACTERIA,URINE FEW /HPF; EPITHELIAL CELLS,URINE MODERATE /LPF; WBC,URINE (MAN) 21-50 /HPF (0-5)
[2021-06-13] MEDS ORDERED: KETOROLAC TROMETHAMINE 30 MG/ML VIAL IV STA (22:16)
[2021-06-14] MEDS ORDERED: ONDANSETRON ODT4 MG PO (00:24)
[2021-06-14 00:40] VITALS: BP 114/54
== END 2021-06-14 00:39 | disposition home or self-care (01) ==
LOC: ER 20:17
DX: R11.2 Nausea with vomiting, unspecified (principal); B34.9 Viral infection, unspecified; R53.1 Weakness; G89.29 Other chronic pain; I10 Essential (primary) hypertension; E11.65 Type 2 diabetes mellitus with hyperglycemia; E78.5 Hyperlipidemia, unspecified; E03.9 Hypothyroidism, unspecified; Z20.822 Contact with and (suspected) exposure to COVID-19; F17.210 Nicotine dependence, cigarettes, uncomplicated
CPT/HCPCS: 36415; 71045; 74176; 80053; 81001; 82550; 82553; 83880; 84484; 85025; 85610; 85730; 93005; 99284; J0131; J1885; J2405; J7030; U0002

== ENCOUNTER 2021-06-15 | Emergency (ER) | payer MEDICARE ==
[~2021-06-15] VITALS: Ht 160 cm; Wt 61.2 kg
[~2021-06-15] MED LIST changes: +ONDANSETRON ODT4 MG PO
[2021-06-15] MEDS ORDERED: IBUPROFEN 600 MG TAB PO STA (00:30)
[2021-06-15] MEDS ORDERED: IBUPROFEN 600 MG TAB ONE (00:42)
== END 2021-06-15 00:50 | disposition home or self-care (01) ==
LOC: ER 00:05
DX: R50.9 Fever, unspecified (principal); B34.9 Viral infection, unspecified; R11.10 Vomiting, unspecified; G89.29 Other chronic pain; Z20.822 Contact with and (suspected) exposure to COVID-19; I10 Essential (primary) hypertension; E11.9 Type 2 diabetes mellitus without complications; E78.5 Hyperlipidemia, unspecified
CPT/HCPCS: 99282